=== PATIENT | male | born 1955 | race Caucasian/White ===

== ENCOUNTER → 2019-07-03 09:29 | Outpatient (CLI) | payer MEDICARE, OTHER, SELFPAY ==
--- NOTE | 2019-07-03 | DI.US.S_ITS ---
PROCEDURE: US RENAL COMPLETE INDICATIONS: NOCTURIA TECHNIQUE: Real-time scanning was performed of the kidneys and bladder, with image documentation. COMPARISON: None. FINDINGS: Kidneys: Kidneys are normal in size. Right kidney measures 10.3 cm long; left kidney measures 1.4 cm long. Right renal cortical thickness is 11.3 cm; left renal cortical thickness is 1.6 cm. Renal cortical echotexture is normal. No hydronephrosis or nephrolithiasis. No suspicious solid mass lesions. Bladder: Pre-void bladder volume is 342 mL. Post-void residual is 82 mL. Pre-void images demonstrate no intraluminal masses or stones. On pre-void images, bilateral ureteral jets are noted with color Doppler interrogation. (Of note, ureteral jets may not be detectable in up to 25% of cases due to insufficient differences in specific gravity between ureteral and bladder urine). Miscellaneous: No free pelvic fluid. IMPRESSION: No hydronephrosis or nephrolithiasis found. Normal bladder function. Source of nocturia not found. Dictated by: Truman Hong M.D. on 07/03/2019 at 14:28 Approved by: Truman Hong M.D. on 07/03/2019 at 14:29
== END ==
PROVIDERS: PCP Internal Medicine; Visit Provider Internal Medicine
DX: R35.1 Nocturia (principal)
CPT/HCPCS: 76770

== ENCOUNTER → 2020-01-15 09:10 | Outpatient (CLI) | payer MEDICARE, OTHER, SELFPAY ==
[2020-01-15 10:07] LABS: Add Manual Diff / Slide Review NO; Basophils Absolute Auto 0 /uL (0-100); Basophils Percent Auto 0.7 % (0-2); Eosinophils Absolute Auto 100 /uL (0-450); Eosinophils Percent Auto 3.1 % (2-4); Hematocrit 30.7 % (41-53); Hemoglobin 9.7 g/dL (13.5-17.5); Lymphocytes Absolute Auto 900 /uL (1100-4500); Lymphocytes Percent Auto 27.8 % (25-40); Mean Corpuscular HGB Conc 31.7 % (30-36); Mean Corpuscular Hemoglobin 27.2 PG (26-34); Mean Corpuscular Volume 85.6 fL (80-100); Monocytes Absolute Auto 300 /uL (0-900); Monocytes Percent Auto 8.7 % (3-14); Neutrophils Absolute Auto 2000 /uL (1500-7000); Neutrophils Percent Auto 59.7 % (50-75); Platelet Count 105 X10^3/uL (150-400); Red Blood Cell Count 3.59 X10^6/uL (4.5-5.9); Red Cell Distribution Width 16.7 % (11.6-14.8); White Blood Cell Count 3.3 X10^3/uL (4.5-11.0)
[2020-01-15 10:14] LABS: INR 1.1 (0.9-1.3)
[2020-01-15 11:18] LABS: Alanine Aminotransferase 32 IU/L (<50); Albumin 4.1 g/dL (3.5-5.0); Alkaline Phosphatase 153 U/L (38-126); Aspartate Aminotransferase 55 IU/L (17-59); BUN Creatinine Ratio 15.5 (6-22); Bilirubin Total 0.6 mg/dL (0.2-1.3); Blood Urea Nitrogen 11 mg/dL (9-20); Calcium 9.5 mg/dL (8.4-10.2); Carbon Dioxide 27 mmol/L (22-32); Chloride 100 mmol/L (98-107); Estimated Glomerular Filt Rate > 60.0 mL/min (>60); Glucose 186 mg/dL (80-110); HEMOLYSIS < 15 (0-50); Potassium 4.3 mmol/L (3.4-5.1); Sodium 137 mmol/L (137-145); Total Protein 8.1 g/dL (6.3-8.2)
[2020-01-15 11:51] LABS: Ferritin 17 ng/mL (18-464)
[2020-01-15 12:27] LABS: HEMOLYSIS < 15 (0-50); Iron 41 ug/dL (49-181)
[2020-01-15 12:39] LABS: Percent Iron Saturation 9 % (20-50); Total Iron Binding Capacity 482 ug/dL (261-462); Transferrin 365 mg/dL (206-381)
[2020-01-16 04:03] LABS: Hepatitis A Antibody Total Positive (Negative); Hepatitis B Surf AB Quant <3.1 mIU/mL (Immunity>9.9)
[2020-01-16 04:43] LABS: Alpha 1 Anti Trypsin 144 mg/dL (101-187); Ceruloplasmin 20.6 mg/dL (16.0-31.0); IGA 748 mg/dL (61-437); IGG 1511 mg/dL (700-1600); IGM 104 mg/dL (20-172)
[2020-01-17 03:36] LABS: Alpha Fetoprotein 5.6 ng/mL (0.0-8.3)
[2020-01-17 11:46] LABS: Anti Mitochondrial ABY IGG <20.0 Units (0.0-20.0)
[2020-01-17 13:02] LABS: Smooth Muscle Antibody 16 Units (0-19)
[2020-01-17 16:40] LABS: ANA Screen, IFA Negative (.)
== END ==
PROVIDERS: PCP Internal Medicine; Referring Provider Student in an Organized Health Care Education/Training Program; Visit Provider Student in an Organized Health Care Education/Training Program
DX: D64.9 Anemia, unspecified (principal); R74.8 Abnormal levels of other serum enzymes; K70.30 Alcoholic cirrhosis of liver without ascites
CPT/HCPCS: 36415; 80053; 82103; 82105; 82390; 82728; 82784; 83516; 83540; 83550; 85025; 85610; 86038; 86706; 86708

== ENCOUNTER → 2020-02-29 09:12 | Outpatient (CLI) | payer MEDICARE, OTHER, SELFPAY ==
--- NOTE | 2020-02-29 | DI.US.S_ITS ---
PROCEDURE: US ABDOMEN COMPLETE INDICATIONS: CIRRHOSIS TECHNIQUE: Real-time scanning was performed of the abdominal and retroperitoneal organs, with image documentation. COMPARISON: [facility], US, US RENAL COMPLETE, 07/03/2019, 9:52. FINDINGS: Liver: The liver is normal in size and demonstrates coarsened heterogeneous increased echogenicity. This does result in difficulty evaluating the liver for deep liver lesions. No large liver lesions are identified. The liver measures approximately 15.7 cm in largest dimension. The portal vein is patent. Gallbladder: The gallbladder is within normal limits without cholelithiasis or evidence of gallbladder inflammation. Biliary ducts: Intrahepatic bile ducts are non-dilated. The common bile duct was not definitely seen, obscured by overlying bowel gas. Pancreas: The pancreas was obscured by overlying bowel gas. Spleen: Spleen is normal in size and homogeneous in echotexture. Kidneys: Kidneys are normal in size and echotexture. Right kidney measures 10.1 cm long; left kidney measures 10.6 cm long. No hydronephrosis or nephrolithiasis. No solid masses. Aorta: Visualized aorta is normal in caliber at less than 3 cm. Iliacs: Proximal common iliac arteries are normal in caliber at less than 2.5 cm. IVC: Intrahepatic inferior vena cava is patent. Miscellaneous: No free abdominal fluid. IMPRESSION: 1. Heterogeneous appearance of the liver is compatible with the patient's history of hepatic cirrhosis. 2. No ascites or splenomegaly. 3. No cholelithiasis or evidence of acute cholecystitis. Dictated by: Hunter Thomason M.D. on 02/29/2020 at 10:09 Approved by: Hunter Thomason M.D. on 02/29/2020 at 10:13
== END ==
PROVIDERS: PCP Internal Medicine; Referring Provider Student in an Organized Health Care Education/Training Program; Visit Provider Student in an Organized Health Care Education/Training Program
DX: K70.30 Alcoholic cirrhosis of liver without ascites (principal); R74.8 Abnormal levels of other serum enzymes
CPT/HCPCS: 76700

== ENCOUNTER → 2020-04-02 11:01 | Outpatient (CLI) | payer MEDICARE, OTHER, SELFPAY ==
--- NOTE | 2020-04-02 | DI.CT.S_ITS ---
PROCEDURE: CT ABDOMEN WO/W CON INDICATIONS: alcoholic cirrhosis of liver without ascites TECHNIQUE: 4 phase scanning was performed. Non-contrast 5 mm axial sections acquired from the diaphragm to the iliac crests. Following the administration of intravenous contrast, 5 mm thick arterial-phase, portal venous-phase, and 5-minute delayed phase images were acquired through the liver. 5 mm thick coronal and sagittal reformats were performed. For radiation dose reduction, the following was used: automated exposure control, adjustment of mA and/or kV according to patient size. COMPARISON: [facility], , US ABDOMEN COMPLETE, 02/29/2020, 9:44. FINDINGS: Image quality: Excellent. Lung bases: Lung bases are clear. Heart size is normal. Liver: Liver demonstrates nodular contour consistent with cirrhosis. No intrahepatic masses. Portal vein is patent. Other solid organs: Gallbladder is normal. Biliary system is non dilated. Pancreas is normal in morphology. Spleen is mildly enlarged. No adrenal nodules. Both kidneys demonstrate normal size and enhancement, without hydronephrosis or nephrolithiasis. Nodes and vessels: Mild enlarged periportal lymph nodes measuring up to 1.3 cm in short axis, likely reactive. Aorta and inferior vena cava are normal in size. There is recanalized umbilical vein. Esophageal varices and gastric varices are present. The findings are consistent with portal hypertension. Bowel and peritoneum: Unenhanced bowel loops are normal in caliber. No free fluid or air. Bones: No suspicious bony lesions. No vertebral body compression fractures. Miscellaneous: No ventral hernias. IMPRESSION: 1. Nodular contour of liver consistent with cirrhosis. No intrahepatic masses to suggest HCC. 2. Findings consistent with portal hypertension including mild splenomegaly, recannulized umbilical vein, esophageal varices and gastric varices. 3. Mildly enlarged periportal lymph nodes measuring up to 1.3 cm in short axis, most likely reactive and related to cirrhosis. Dictated by: Ina Ribeiro M.D. on 04/02/2020 at 15:40 Approved by: Ina Ribeiro M.D. on 04/02/2020 at 18:09
[2020-04-02 11:38] LABS: BUN Creatinine Ratio 17.6 (6-22); Blood Urea Nitrogen 13 mg/dL (9-20); Estimated Glomerular Filt Rate > 60.0 mL/min (>60)
== END ==
PROVIDERS: PCP Internal Medicine; Referring Provider Student in an Organized Health Care Education/Training Program; Visit Provider Student in an Organized Health Care Education/Training Program
DX: K70.30 Alcoholic cirrhosis of liver without ascites (principal); I85.10 Secondary esophageal varices without bleeding; I86.4 Gastric varices; R16.1 Splenomegaly, not elsewhere classified; R59.0 Localized enlarged lymph nodes
CPT/HCPCS: 36415; 74170; 82565; 84520; Q9967

== ENCOUNTER → 2020-06-22 10:57 | Outpatient (CLI) | payer MEDICARE, OTHER, SELFPAY ==
[2020-06-23 11:21] LABS: COVID19 Sendout Not Detected (Not Detect)
== END ==
PROVIDERS: PCP Internal Medicine; Visit Provider Nurse Practitioner
DX: Z11.59 Encounter for screening for other viral diseases (principal)
CPT/HCPCS: 87635

== ENCOUNTER 2020-06-25 13:13 | Day surgery (SDC) | payer MEDICARE, OTHER, SELFPAY ==
[2020-06-25] VITALS (7 sets, daily range): BP systolic 114–166; BP diastolic 57–89; PULSE 61–71; RESP 11–24; TEMP 36.6–36.8; O2SAT 97–100; BMI 23.6
--- NOTE | 2020-06-25 | PATH_ITS ---
[facility] Accession Number: [id number] . 01 Material submitted: . rectum - RECTAL POLYP . 02 Diagnosis: Rectum, Polyp, Biopsy: Tubular adenoma. [facility] 06/26/2020 1628 Local . 02 Electronically signed: . Chandrika Milligan MD, Pathologist NPI- [id number] . 01 Gross description: . RECTAL POLYP: Received in formalin is 1 fragment(s) of de la fuente, soft tissue measuring 0.4 x 0.3 x 0.3 cm submitted entirely in 1 cassette(s) /AMALIA 06/26/2020 0123 Local . 02 Pathologist provided ICD-10: D12.8 . 02 CPT . 497737 Performed at: 01 [facility] [address] [id number] MD Jhony Hart MD Phone: [phone] Performed at: 02 [facility] [address] [place], [place] [id number] MD Chandrika Milligan MD Phone: [phone]
[2020-06-25] MEDS: SODIUM CHLORIDE 0.9% 1,000 ML 42 ML IV (14:09)
--- NOTE | 2020-06-25 16:28 | PM.HP.1 ---
History of Present Illness History of Present Illness Date Patient Seen: 06/25/20 Chief complaint: SDC Narrative: Anemia in the face of cirrhosis and known esophageal varices Patient History Family & Social History Social History: household members spouse,family Tobacco & Substance use: Tobacco type cannabis/marijuana Smoking Status Current every day smoker alcohol intake current alcohol intake frequency a few times a week Substance Use Type marijuana Meds Home Medications and Allergies Home Medications Medication Instructions Recorded Confirmed Type nadolol 20 mg PO QAY #0 11/22/11 06/25/20 History allopurinol 100 mg PO QDAY #0 05/29/13 06/25/20 History clonidine HCl 0.1 mg PO DAILY 06/25/20 06/25/20 History glipizide 2.5 mg PO BID 06/25/20 06/25/20 History lisinopril 20 mg PO DAILY 06/25/20 06/25/20 History loratadine 10 mg PO DAILY 06/25/20 06/25/20 History metformin 1,000 mg BID 06/25/20 06/25/20 History omeprazole 40 mg PO DAILY 06/25/20 06/25/20 History simvastatin 20 mg DAILY 06/25/20 06/25/20 History tamsulosin 0.4 mg PO DAILY 06/25/20 06/25/20 History Allergies Allergy/AdvReac Type Severity Reaction Status Date / Time NSAIDS (Non-Steroidal Allergy Unknown Physician Unverified 06/25/20 14:09 Anti-Inflamma said not to take codeine AdvReac Mild CONSTIPATION, Unverified 06/25/20 14:09 BUT HAS NEVER TAKEN WITH STOOL SOFTENER Exam Vital Signs (past 8 hours): - 06/25/20 14:01 Temperature 98.1 F Pulse Rate 61 Respiratory Rate 16 Blood Pressure 114/69 Pulse Oximetry 100 Oxygen Delivery Method Room Air Narrative Exam Narrative: Oropharynx free of lesions Chest clear to auscultation percussion Cardiac exam reveals no S3 or murmur Assessment & Plan Assessment & Plan narrative: Anemia and esophageal varices. Need to look for cause of anemia and to potentially band the esophageal varices further. Risks benefits alternatives have been explained.
--- NOTE | 2020-06-25 16:29 | PM.OP.ENDO ---
Operative Date/Time/Diagnoses Date of procedure: 06/25/20 Pre-op diagnosis: See indication and findings Procedure & Clinicians Study performed: EGD and colonoscopy Same procedure as scheduled: Yes Indications: Anemia and esophageal varices Surgeon: Nellie Varner Procedure Notes Procedure in detail: After informed consent was obtained the patient was placed in left lateral decubitus position. The video upper scope was placed into the oropharynx and with the patient some solid into the esophagus. The esophagus, stomach, duodenum were carefully examined. On withdrawal, retroflexed view the GE junction was performed. The scope was removed and the banding kit was placed over see see below). Then the scope was removed to turn to colonoscopy. The patient was then turned to the colonoscope substituted. This was easily passed to the cecum. Preparation was good. On slow withdrawal mucosa was carefully examined. The scope was removed. The patient tolerated procedure well. Blood loss none Complications none Sedation - MAC Findings EGD 1. Grade 2-3 esophageal varices with some areas being somewhat confluent. There were multiple red signs on some of the varices. At the end of the procedure the scope was removed and the banding kit placed. Four bands were placed on 3 columns of varices without any signs of bleeding. 2. Possible very small gastric varices in the fundus. In general the mucosa and gastric folds were quite large toe is a bit difficult to tell. 3. Gastropathy of portal hypertension which was very friable. 4. Normal duodenal bulb and sweep Colonoscopy 1. 6 mm polyp in the rectum, hot snared and removed completely 2. Scattered diverticula in the left colon 3. Other than that negative colonoscopy to cecum Patient will follow-up with tele health appointment with Dr. Willoughby. Should probably have follow-up EGD for further banding in 6-8 weeks at [facility]. Patient should only be done with anesthesia assistance.
--- NOTE | 2020-06-25 17:21 | SUR.PHASEII ---
Pt dcd in stable condition, all dc instructions given to pt and he verbalized understanding. Out to son in curbside car.
== END 2020-06-25 17:19 | disposition home or self-care (01) ==
PROVIDERS: PCP Internal Medicine; Referring Provider Internal Medicine Gastroenterology; Visit Provider Internal Medicine Gastroenterology
PROC: 0DJ08ZZ Inspection of Upper Intestinal Tract, Via Natural or Artificial Opening Endoscopic (ICD-10-PCS; CPT 43235; principal; 2020-06-25 15:30)
PROC: 0DJD8ZZ Inspection of Lower Intestinal Tract, Via Natural or Artificial Opening Endoscopic (ICD-10-PCS; CPT 45378; 2020-06-25 15:30)
DX: D64.9 Anemia, unspecified (principal); K70.30 Alcoholic cirrhosis of liver without ascites; I85.10 Secondary esophageal varices without bleeding; F10.10 Alcohol abuse, uncomplicated; K76.6 Portal hypertension; K31.89 Other diseases of stomach and duodenum; K57.30 Diverticulosis of large intestine without perforation or abscess without bleeding; D12.8 Benign neoplasm of rectum
CPT/HCPCS: 43244; 45385; J2704

== ENCOUNTER → 2020-08-24 13:47 | Outpatient (ROUT) | payer MEDICARE, OTHER, SELFPAY ==
[2020-08-25 12:36] LABS: COVID19 Sendout Not Detected (Not Detect)
== END ==
PROVIDERS: PCP Internal Medicine; Visit Provider Physician Assistant
DX: Z11.59 Encounter for screening for other viral diseases (principal)
CPT/HCPCS: 87635

== ENCOUNTER 2020-08-27 14:13 | Day surgery (SDC) | payer MEDICARE, OTHER, SELFPAY ==
[2020-08-27] VITALS (7 sets, daily range): BP systolic 107–154; BP diastolic 59–93; PULSE 56–74; RESP 12–16; TEMP 36.2–36.9; O2SAT 97–100; BMI 23.6
[2020-08-27] MEDS: SODIUM CHLORIDE 0.9% 1,000 ML 70 ML IV (15:02)
--- NOTE | 2020-08-27 15:56 | PM.HP.1 ---
History of Present Illness History of Present Illness Date Patient Seen: 08/27/20 Time Patient Seen: 15:56 Chief complaint: SDC Narrative: Patient is a pleasant 65-year-old male who presented for upper endoscopy. He does have a known history of cirrhosis secondary to abuse. He does have a history of esophageal varices. He has had active esophageal variceal bleeding in the past. He has had chronic anemia. His last EGD was June 25, 2020 for evaluation of anemia at that time, 4 additional bands were placed. He has started drinking again since that time Patient History Family & Social History Social History: household members spouse,family Tobacco & Substance use: Tobacco type cannabis/marijuana Smoking Status Former smoker alcohol intake current alcohol intake frequency a few times a week Substance Use Type marijuana Meds Home Medications and Allergies Home Medications Medication Instructions Recorded Confirmed Type nadolol 20 mg PO QAY #0 11/22/11 08/27/20 History allopurinol 100 mg PO QDAY #0 05/29/13 08/27/20 History clonidine HCl 0.1 mg PO DAILY 06/25/20 08/27/20 History glipizide 2.5 mg PO BID 06/25/20 08/27/20 History lisinopril 20 mg PO DAILY 06/25/20 08/27/20 History loratadine 10 mg PO DAILY 06/25/20 08/27/20 History metformin 1,000 mg BID 06/25/20 08/27/20 History omeprazole 40 mg PO DAILY 06/25/20 08/27/20 History simvastatin 20 mg DAILY 06/25/20 08/27/20 History tamsulosin 0.4 mg PO DAILY 06/25/20 08/27/20 History Allergies Allergy/AdvReac Type Severity Reaction Status Date / Time NSAIDS (Non-Steroidal Allergy Unknown Physician Verified 08/27/20 15:21 Anti-Inflamma said not to take codeine AdvReac Mild CONSTIPATION, Verified 08/27/20 15:21 BUT HAS NEVER TAKEN WITH STOOL SOFTENER Review of Systems Review of Systems Narrative: No signs or symptoms GI bleeding. No melena. No abdominal pain. ROS: Yes All systems reviewed with the patient and are negative except as otherwise documented Exam Vital Signs (past 8 hours): - 08/27/20 14:41 08/27/20 14:49 Temperature 97.2 F L 97.2 F L Pulse Rate 56 L 56 L Respiratory Rate 16 16 Blood Pressure 107/59 L 107/59 L Pulse Oximetry 100 100 Oxygen Delivery Method Room Air Const General: cooperative, comfortable and well developed Nutritional Appearance: average body habitus HENMT Head: normocephalic and atraumatic Resp Effort & Inspection: normal respiratory effort and able to speak in complete sentences Auscultation: clear to auscultation bilaterally Cardio Rate: regular rate Rhythm: regular rhythm Heart Sounds: S1 normal and S2 normal GI Palpation: soft and No tender Extrem Right lower extremity: no edema Left lower extremity: no edema Assessment & Plan Assessment & Plan narrative: 1. History of esophageal varices overdue for repeat EGD to assess for healing 2. Cirrhosis secondary to alcohol abuse EGD today, further recommendations to follow
--- NOTE | 2020-08-27 16:16 | PM.OP.ENDO ---
Operative Date/Time/Diagnoses Date of procedure: 08/27/20 Time of procedure: 16:03 Procedure Notes Procedure in detail: Surgeon: Alicia Willoughby DO Procedure: Esophagogastroduodenoscopy with variceal band ligation x3 Preoperative diagnosis: 1. Cirrhosis with history of esophageal varices 2. Chronic anemia Postoperative diagnosis: 1. Large esophageal varices with 3 bands placed 2. Portal hypertensive gastropathy 3. Small hiatal hernia Medications: Monitored anesthesia care Preanesthesia Assessment An H and P was performed/updated and the Px?s ASA class is 3. The procedure was discussed in detail with the patient. The potential risks and complications including infection, bleeding, missed lesions, perforation, need for surgery in case of perforation, prolonged hospital stay, and were explained. A brief question and answer period was allotted and once all questions were answered, informed consent was obtained. The patient was brought back to the procedure room and placed on standard monitoring. The patient?s vital signs were monitored continuously throughout the entire procedure. Prior to starting, a timeout was performed to confirm the patient?s identity, allergies, medications, and procedure. Procedure in detail The patient was placed in left lateral decubitus position and a bite block was inserted. The tip of the upper endoscope was placed into the mouth and advanced without difficulty under direct visualization into the esophagus. Esophagus: -Large esophageal varices seen in the distal esophagus, 3 band ligations were placed Stomach: -Small hiatal hernia -Portal hypertensive gastropathy Duodenum: -No gross lesions noted in examined duodenum The patient tolerated the procedure well and will be brought back to the recovery area to be discharged once criteria are met. The total physician intraservice time was 12min Complications There were no complications and estimated blood loss was minimal. Recommendations: Soft diet for the next 48 hours Discontinue alcohol Continue outPx medications Repeat EGD in 6 weeks with anesthesia Office follow up after repeat procedure An emergency contact number was given to the patient for any complications related to the procedure
--- NOTE | 2020-08-27 16:18 | SUR.OPER ---
Dr. Cat present and administrated all anesthesia and sedation
--- NOTE | 2020-08-27 16:58 | SUR.PHASEII ---
Son called. d/c instructions discussed, both voiced an understanding. Green envelop given to son on discharge. Pt left in stable condition.
== END 2020-08-27 16:59 | disposition home or self-care (01) ==
PROVIDERS: PCP Internal Medicine; Referring Provider Internal Medicine; Visit Provider Student in an Organized Health Care Education/Training Program
PROC: 0DJ08ZZ Inspection of Upper Intestinal Tract, Via Natural or Artificial Opening Endoscopic (ICD-10-PCS; CPT 43235; principal; 2020-08-27 16:00)
DX: I85.00 Esophageal varices without bleeding (principal); D64.9 Anemia, unspecified; K44.9 Diaphragmatic hernia without obstruction or gangrene; K31.9 Disease of stomach and duodenum, unspecified
CPT/HCPCS: 43244; J2704

== ENCOUNTER → 2020-11-17 09:11 | Outpatient (CLI) | payer MEDICARE, OTHER, SELFPAY ==
[2020-11-17 10:07] LABS: COVID19 -Nasal RAPID Negative (Negative)
== END ==
PROVIDERS: PCP Internal Medicine; Visit Provider Physician Assistant
DX: Z20.822 Contact with and (suspected) exposure to COVID-19 (principal)
CPT/HCPCS: 87635; C9803

== ENCOUNTER 2020-11-19 13:46 | Day surgery (SDC) | payer MEDICARE, OTHER, SELFPAY ==
[2020-11-19] VITALS (7 sets, daily range): BP systolic 99–141; BP diastolic 59–81; PULSE 59–66; RESP 12–16; TEMP 36.7–36.8; O2SAT 98–100; BMI 22.8
[2020-11-19] MEDS: SODIUM CHLORIDE 0.9% 1,000 ML 70 ML IV (14:22)
--- NOTE | 2020-11-19 14:44 | PM.HP.1 ---
History of Present Illness History of Present Illness Date Patient Seen: 11/19/20 Time Patient Seen: 14:40 Chief complaint: SDC Narrative: Patient is a 65-year-old male who presented for EGD with possible banding. He does have a known history of cirrhosis secondary to chronic alcohol abuse. He was last seen for upper endoscopy on August 27, 2020 he did have 3 bands placed at that time. He also noted portal hypertensive gastropathy and a small hiatal hernia. Patient History Family & Social History Social History: household members spouse,family Tobacco & Substance use: Tobacco type cannabis/marijuana Smoking Status Former smoker alcohol intake current alcohol intake frequency a few times a week Substance Use Type marijuana Meds Home Medications and Allergies Home Medications Medication Instructions Recorded Confirmed Type nadolol 20 mg PO QAY #0 11/22/11 08/27/20 History allopurinol 100 mg PO QDAY #0 05/29/13 08/27/20 History clonidine HCl 0.1 mg PO DAILY 06/25/20 08/27/20 History glipizide 2.5 mg PO BID 06/25/20 08/27/20 History lisinopril 20 mg PO DAILY 06/25/20 08/27/20 History loratadine 10 mg PO DAILY 06/25/20 08/27/20 History metformin 1,000 mg BID 06/25/20 08/27/20 History omeprazole 40 mg PO DAILY 06/25/20 08/27/20 History simvastatin 20 mg DAILY 06/25/20 08/27/20 History tamsulosin 0.4 mg PO DAILY 06/25/20 08/27/20 History Allergies Allergy/AdvReac Type Severity Reaction Status Date / Time NSAIDS (Non-Steroidal Allergy Unknown Physician Verified 08/27/20 15:21 Anti-Inflamma said not to take codeine AdvReac Mild CONSTIPATION, Verified 08/27/20 15:21 BUT HAS NEVER TAKEN WITH STOOL SOFTENER Review of Systems Review of Systems ROS: Yes All systems reviewed with the patient and are negative except as otherwise documented Exam Vital Signs (past 8 hours): - 11/19/20 14:15 Temperature 98.1 F Pulse Rate 60 Respiratory Rate 13 Blood Pressure 141/72 H Pulse Oximetry 100 Oxygen Delivery Method Room Air Oxygen Flow Rate 0 Const General: cooperative, healthy appearing, comfortable and well developed Nutritional Appearance: average body habitus HENMT Head: normocephalic Resp Effort & Inspection: normal respiratory effort and able to speak in complete sentences Auscultation: clear to auscultation bilaterally Cardio Rate: regular rate Rhythm: regular rhythm Heart Sounds: S1 normal and S2 normal GI Palpation: soft Auscultation: normal bowel sounds Extrem Right lower extremity: no edema Left lower extremity: no edema Assessment & Plan Assessment & Plan narrative: 1. Cirrhosis with a history of esophageal varices, last banded August 27, 2020 EGD today, further recommendations to follow
--- NOTE | 2020-11-19 14:57 | PM.OP.ENDO ---
Operative Date/Time/Diagnoses Date of procedure: 11/19/20 Time of procedure: 14:54 Procedure Notes Procedure in detail: Surgeon: Alicia Willoughby DO Procedure: Esophagogastroduodenoscopy Preoperative diagnosis: 1. History of cirrhosis 2. History of esophageal varices, portal hypertensive gastropathy, small hiatal hernia Postoperative diagnosis: 1. Esophageal varices, extending into the stomach consistent with GOV2 gastric varices 2. Portal hypertensive gastropathy 3. Small hiatal hernia Medications: Monitored anesthesia care Preanesthesia Assessment An H and P was performed/updated and the Px?s ASA class is 3. The procedure was discussed in detail with the patient. The potential risks and complications including infection, bleeding, missed lesions, perforation, need for surgery in case of perforation, prolonged hospital stay, and were explained. A brief question and answer period was allotted and once all questions were answered, informed consent was obtained. The patient was brought back to the procedure room and placed on standard monitoring. The patient?s vital signs were monitored continuously throughout the entire procedure. Prior to starting, a timeout was performed to confirm the patient?s identity, allergies, medications, and procedure. Procedure in detail The patient was placed in left lateral decubitus position and a bite block was inserted. The tip of the upper endoscope was placed into the mouth and advanced without difficulty under direct visualization into the esophagus. Esophagus: Grade 1-2 esophageal varices with scarring from prior banding noted, extending into the stomach Stomach: GOV2 gastric varices Portal hypertensive gastropathy Small hiatal hernia Duodenum: Normal-appearing duodenum The patient tolerated the procedure well and will be brought back to the recovery area to be discharged once criteria are met. The total physician intraservice time was 6min. Complications There were no complications and estimated blood loss was minimal. Recommendations: Resume previous diet Continue outPx medications Repeat EGD in 1 year Office follow up to be scheduled An emergency contact number was given to the patient for any complications related to the procedure
--- NOTE | 2020-11-19 16:14 | SUR.PHASEII ---
Pt met discharge criteria: VSS, denied pain or nausea, able to drink fluids without difficulty. Discharge instructions discussed with pt, all questions answered. Transported via W/C to private vehicle.
== END 2020-11-19 15:57 | disposition home or self-care (01) ==
PROVIDERS: PCP Internal Medicine; Referring Provider Student in an Organized Health Care Education/Training Program; Visit Provider Student in an Organized Health Care Education/Training Program
PROC: 0DJ08ZZ Inspection of Upper Intestinal Tract, Via Natural or Artificial Opening Endoscopic (ICD-10-PCS; CPT 43235; principal; 2020-11-19 15:00)
DX: I85.00 Esophageal varices without bleeding (principal); K44.9 Diaphragmatic hernia without obstruction or gangrene; K76.6 Portal hypertension; K31.89 Other diseases of stomach and duodenum; F10.11 Alcohol abuse, in remission; I10 Essential (primary) hypertension; E11.9 Type 2 diabetes mellitus without complications; Z79.84 Long term (current) use of oral hypoglycemic drugs
CPT/HCPCS: 43235

== ENCOUNTER → 2020-12-22 14:04 | Outpatient (CLI) | payer MEDICARE, OTHER, SELFPAY | PROVIDERS: PCP Internal Medicine; Referring Provider Podiatrist; Visit Provider Podiatrist | DX: Z01.818 Encounter for other preprocedural examination (principal) | CPT/HCPCS: 93005 ==

== ENCOUNTER → 2020-12-24 09:46 | Outpatient (CLI) | payer MEDICARE, OTHER, SELFPAY ==
[2020-12-24 11:17] LABS: COVID19 -Nasal RAPID Negative (Negative)
== END ==
PROVIDERS: PCP Internal Medicine; Visit Provider Nurse Practitioner Family
DX: Z01.812 Encounter for preprocedural laboratory examination (principal); Z20.822 Contact with and (suspected) exposure to COVID-19
CPT/HCPCS: 87635; C9803

== ENCOUNTER 2020-12-26 07:51 | Day surgery (SDC) | payer MEDICARE, OTHER, SELFPAY ==
[2020-12-26] VITALS (15 sets, daily range): BP systolic 97–138; BP diastolic 48–84; PULSE 20–71; RESP 11–20; TEMP 35.9–37.1; O2SAT 93–99; BMI 22.8
[2020-12-26] MEDS: LACTATED RINGERS 1,000 ML 100 ML IV ×2 (08:36→09:48)
--- NOTE | 2020-12-26 08:46 | PM.PREOP ---
Pre-operative Note COVID-19 COVID-19 status: Negative Interval Note History & Physical reviewed/Exam performed by Physician: Yes Changes to H&P: No
[2020-12-26] MEDS: CEFAZOLIN 2 GM/100 ML FROZ.PIGGY IV (08:55)
--- NOTE | 2020-12-26 09:26 | SUR.OPER ---
Supine on padded OR bed, head on pillow, arms secured on padded arm boards at <90 degrees abduction, legs uncrossed, safety belt at thigh, tape over blanket over lower right leg, gel bump under left thigh, left leg draped free.
[2020-12-26] MEDS: BUPIVACAINE 0.5% (PF) VIAL 30 ML INJ (09:33)
[2020-12-26] MEDS: LIDOCAINE 2% INJ SDV 5 ML INJ (09:34)
--- NOTE | 2020-12-26 09:59 | PM.OP.1 ---
Operative Date/Time/Diagnoses Date of procedure: 12/26/20 Time of procedure: 09:59 Pre-op diagnosis: Left second painful hammertoe Post-op diagnosis: same Procedure & Clinicians Procedure: Left second toe amputation Same procedure as scheduled: Yes Indications: Painful hammertoe. Conservative measures failed to alleviate his pain and he wished to have surgical intervention at this time. Surgeon: Nataliia Johnson Click Yes if Unassisted: Yes Anesthesia Type: General Operative Notes Closure Type: primary Specimen(s): none sent Estimated Blood Loss (mL): 5 Blood products transfused: none Tourniquet time (min): 8 Procedure in detail: The patient was brought to the operating room and placed on the operating table in the supine position. Tourniquet was placed about the high calf. Well padded appropriately aligned. After induction of general anesthesia the left foot and ankle were prepped and draped in the usual aseptic manner. The tourniquet was inflated. After check of anesthesia a full-thickness circumferential incision was made around the left 2nd toe. This was then continued into the metatarsophalangeal joint linearly. The toe was carefully disarticulated. The area was irrigated with copious amounts of normal sterile saline. All bleeders were cauterized and ligated as necessary. No necrotic tissue or abscesses were noted. Skin and tissue was revised to allow for appropriate closure. 4-0 Vicryl was used subcutaneously for closure and 4-0 nylon for the skin. The area was dressed with a sterile lightly compressive dressing. Complications: none Post-operative Condition: stable Disposition: observation Plan for aftercare: Following a period of postoperative monitoring the patient will be transferred to the hospital floor for overnight observation due to pain management and verification of return to ADLs and verification of hemostasis of surgical site.
[2020-12-26] MEDS: diphenhydrAMINE 50 MG/ML VIAL (10:33)
--- NOTE | 2020-12-26 10:39 | SUR.PHASEI ---
report to ANTHONY Schwarz assuming care of pt. Transfer to room 205
[2020-12-26] MEDS: OXYCODONE IR 5 MG TABLET PO ×3 (14:55→23:21)
--- NOTE | 2020-12-26 15:21 | PC.NURSE ---
Patient on floor 10:50. VSS. A&O X3. Pain 4/10 this afternoon, given 5 mg Oxycodone. Left foot with Acewrap and foot brace, CDI. Saline locked. Call light within reach. No BM or gas yet, but voiding into urinal. 50% weight bearing on left foot.
[2020-12-26] MEDS: PANTOPRAZOLE 40 MG TABLET PO (17:26)
[2020-12-26] MEDS: METFORMIN HCL 500 MG TABLET 1000 MG PO (20:17)
[2020-12-27 03:10] VITALS: BP 115/66; PULSE 72; RESP 18; TEMP 36.3; O2SAT 95
[2020-12-27] MEDS: OXYCODONE IR 5 MG TABLET PO ×2 (03:22→08:17)
[2020-12-27 07:30] VITALS: BP 143/68; PULSE 70; RESP 17; TEMP 36.6; O2SAT 97
[2020-12-27] MEDS: allopurinoL 300 MG TABLET PO (08:42)
[2020-12-27 08:43] VITALS: BP 143/68; PULSE 70
[2020-12-27] MEDS: lisinopriL 20 MG TABLET PO (08:43)
[2020-12-27] MEDS: LORATADINE 10 MG TABLET PO (08:44)
[2020-12-27] MEDS: SIMVASTATIN 20 MG TABLET PO (08:44)
[2020-12-27] MEDS: MULTIVITAMIN 1 TABLET 1 TAB PO (08:44)
[2020-12-27] MEDS: METFORMIN HCL 500 MG TABLET 1000 MG PO (08:44)
[2020-12-27] MEDS: TAMSULOSIN 0.4 MG CAPSULE PO (08:45)
[2020-12-27] MEDS: SODIUM CHLORIDE 0.9% FLUSH 10 ML IV (08:45)
[2020-12-27] MEDS: THIAMINE 100 MG TABLET 250 MG PO (08:45)
--- NOTE | 2020-12-27 09:48 | PT.IIE ---
Current Diagnoses Hallux valgus (acquired), left foot (12/26/20) Other hammer toe(s) (acquired), left foot (12/26/20) Pain in left foot (12/26/20) Surgery Performed Operation Date: 12/26/20 09:15 Actual Procedures p 2nd Toe Amputation(Left) - Nataliia Johnson DPM Surgical History (Last Updated 12/17/20 @ 09:16 by Ashlyn Mckeon, RN) History of cataract extraction with lens replacement History of colonoscopy History of esophagogastroduodenoscopy (EGD) (~08/27/20) History of total hip arthroplasty Medical History (Last Updated 12/17/20 @ 11:25 by Ashlyn Mckeon, ANTHONY) Anemia Chronic alcohol abuse Diabetes Diverticulosis DVT (deep venous thrombosis) Esophageal 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 Foot pain, left Gastritis Gout Hallux valgus with bunions of left foot Hammertoe of second toe of left foot Hepatic cirrhosis Heterozygous factor V Leiden mutation Hiatal hernia Portal hypertensive gastropathy Ringing in ears Tubular adenoma Unspecified essential hypertension Physical Therapy Inpatient Evaluation/Re-Eval M1 PT/OT-IP Prior Functional Status Start: 12/27/20 10:38 Freq: NEEDED Status: Active Protocol: Document 12/27/20 09:48 AB (Rec: 12/27/20 10:50 AB [id number]) Medical Review Prior Functional Status Medical History Reviewed Yes Communication able to make needs known Mobility and Gait pt stated that he is independent with all mobilities and ambulation without AD; stated that he uses his power w/c for outdoor mobility Social History Household Members spouse,family Living Arrangements House Number of Floors (Floors) One Floor Number of Stairs To Enter/Railing? no steps; ramp to enter Home Environment High Toilet,Walk in Shower, Built-In Shower Seat,Ramp Home Equipment Crutches,Power Wheelchair/ Scooter,Grab Bars In Shower Additional Social History Comment pt stated that his spouse is disabled and is on a w/c but grandson and other family members will be able to assist him pt stated that he has used crutches extensively before and prefers crutches to use M2 PT-IP Current Condition Start: 12/27/20 10:38 Freq: NEEDED Status: Active Protocol: Document 12/27/20 09:48 AB (Rec: 12/27/20 10:50 AB [id number]) Physical Therapy Current Condition Current Condition Evaluation Date 12/27/20 Treatment Diagnosis s/p L 2nd hammertoe amputation ; difficulty in walking Onset Date 12/26/20 Weight Bearing Status Weight Bearing Status Partial Weight Bearing Allowed Weight Bearing Amount (enter % LLE PWB <50% or #) (%) M3 PT-IP Subjective Start: 12/27/20 10:38 Freq: NEEDED Status: Active Protocol: Document 12/27/20 09:48 AB (Rec: 12/27/20 10:50 AB [id number]) Subjective Physical Therapy Visit Type Type Initial Evaluation Visit Start Time 09:48 Visit Stop Time 10:10 Total Visit Minutes 22 Number of SUPERVISOR PLATE PASTING Visits 0 Physical Therapy Visit Comments Patient Comments agreeable to do PT Therapy Pain Assessment Pain When Pain Assessed At Rest Pain Present Pain Present Pain Reported Location Left Toe Intensity 2 Scale Used Numeric (0 - 10) M4 PT-IP Mobility and Gait Start: 12/27/20 10:38 Freq: NEEDED Status: Active Protocol: Document 12/27/20 09:48 AB (Rec: 12/27/20 10:50 AB [id number]) PT-Bed Mobility Assessment Supine to Sit Supine to Sit Standby Assistance Sit to Supine Sit to Supine Standby Assistance Scooting Scooting to Edge of Bed Standby Assistance Scooting Up and Down in Bed Standby Assistance PT-Transfer Assessment Sit to and From Stand Sit to and from Stand Standby Assistance Equipment Transfer Assistive Device Gait Belt,Axillary Crutches Orthotic/Prosthetic Devices or Brace: No Comments Mobility Comments educated pt on weight bearing restriction and instructed on how to maintain. BP supine: 133/72. pt completed bed mobility supine to sit SBA. completed sit to stand SBA and ambulated in room using bilateral axillary crutches ~ 30 ft SBa and cues to maintain PWB on LLE. pt c/o dizziness and instructed to sit back on bed. pt requested to lay back in bed and completed sBA. positioned in bed. stated dizziness is gone. BP checked : 139/79. pt stated that he uses a power w/c for outdoor mobility and does not have go walk much inside the house. call light and table placed within reach. informed nurse regarding pt's mobility. Gait Assessment Gait Gait Assistance Required: Standby Assistance,1 Person Assist Distance (Feet) 30 Able to Maintain Weight Bearing Status Yes During Gait Assistive Devices Assistive Device Gait Belt,Axillary Crutches Orthotic/Prosthetic Devices or Brace: No Gait Deviations General Gait Pattern Decreased Feet Clearance Factors Limiting Gait Function Factors Limiting Gait Function Decreased Activity Tolerance, Decreased Strength,Pain,Poor Balance,Poor Safety Awareness PT-Balance Assessment Sitting Balance and Reactions Static Sitting Balance Ability Good Dynamic Sitting Balance Ability Good Standing Balance and Reactions Static Standing Balance Ability Fair Dynamic Standing Balance Ability Fair Device Used crutches M5 PT-IP Objective Assessments Start: 12/27/20 10:38 Freq: NEEDED Status: Active Protocol: Document 12/27/20 09:48 AB (Rec: 12/27/20 10:50 AB [id number]) Orientation Orientation/Cognition Level of Alertness Alert Orientation Name,Age,Birthday,Month,Date, Year,Day of Week,Place, Situation Language Function Ability No Deficits Noted Safety Awareness Understands Safety Issues Memory Description No Deficits Noted Gross Range of Motion Lower Extremity ROM Assessment Left Impaired Impairments L hip limited: pt stated that he had previous OCTAVIO Strength Lower Extremity Strength Hip 4-/5 Knee 4-/5 Muscle Tone Muscle Tone WNL Yes M6 PT-IP Treatment Start: 12/27/20 10:38 Freq: NEEDED Status: Active Protocol: Document 12/27/20 09:48 AB (Rec: 12/27/20 10:50 AB [id number]) Physical Therapy Treatment Education Education Provided Weight Bearing Status,Safety M7 PT-IP Assessment and Plan Start: 12/27/20 10:38 Freq: NEEDED Status: Active Protocol: Document 12/27/20 09:48 AB (Rec: 12/27/20 10:50 AB [email or web address]) PT Summary Assessment and Plan Potential Rehabilitation Potential Good Status of Condition at Evaluation Stable Summary Impairments Pain,ROM,Strength,Balance, Coordination,Sensation,Bed Mobility,Transfers,Gait, Activity Tolerance Assessment Summary pt requiring SBA with mobility but limited due to decrease activity tolerance with c/o dizziness during ambulation but BP is stable. pt stated that he has a power w/c for outdoor mobility and does not have to walk much at home. pt will have family to assist him. pt may go home when medically stable. Goals Bed Mobility Goal Independent Transfer Goal Independent,Crutches Gait Goal Independent,Crutches Gait Distance 100 Days to Meet Goals 5 Frequency of Treatment Frequency Of Treatment Once a Day Treatment Plan Physical Therapy Treatment Plan Bed Mobility Training,Transfer Training,Gait Training, Therapeutic Exercise,Balance Retraining,Post Op Education, Discharge Planning,Hot or Cold Pack,Neuromuscular Re-ed, Coordination Retraining Recommendations To Nursing Amount of Assist Needed Standby Assistance Discharge Recommendations PT Discharge Recommendations Home with Assistance Transportation Needs at Discharge Private Vehicle
[2020-12-27 10:30] VITALS: BP 139/78; PULSE 75; RESP 15; TEMP 36.4; O2SAT 97
--- NOTE | 2020-12-27 10:47 | CM.DANOTE ---
DCP: Case received, EMR reviewed and met with patient. Introduced self and role. Was able to obtain information from patient regarding his baseline activity status prior to surgery, as well as current living situation. DCP assessment completed with information currently available. Patient is a 65 year old male who admitted yesterday morning to the care of the surgical/podiatry team. PCP: Dr. Eli. Payer: confirmed: Medicare/[employer]. Patient came to the hospital for a surgical procedure. He had a left second toe amputation secondary to having hammertoe. Met with patient in his room. He is alert and oriented. He has a boot on his left foot. Plan is for home today. He stated that prior to surgery, he used no DME supplies, would limp to get around. Confirmed that he resides in [place] with his , Love. His son is bringing him some crutches, as well as a wheel-chair. Patient indicated that his daughter, Sara, will be assisting him at home, as well as his grand son. Stated, he has plenty of family support. He has already worked with [facility]: Patient is to be discharged home today, with family assistance at home. Nichole Kumar RN/Warranty Coordinator
--- NOTE | 2020-12-27 11:29 | PC.NURSE ---
Patient educated about ss/ of infection, discharge post op information, follow up w/ provider, ss of stroke, activity, weight bearing and medications. Patient verbalized understanding of all discharge teaching. Patient left facility with all belongings, via wheelchair to private vehicle with family member. Patient had no prescriptions.
== END 2020-12-27 11:29 | disposition home or self-care (01) ==
LOC: OR 07:54 → AC 07:54
PROVIDERS: PCP Internal Medicine; Referring Provider Podiatrist; Visit Provider Podiatrist
PROC: (CPT 28820; principal; 2020-12-26 09:15)
DX: M20.42 Other hammer toe(s) (acquired), left foot (principal); M20.12 Hallux valgus (acquired), left foot; M79.672 Pain in left foot; I10 Essential (primary) hypertension; E11.9 Type 2 diabetes mellitus without complications; Z79.84 Long term (current) use of oral hypoglycemic drugs; K21.9 Gastro-esophageal reflux disease without esophagitis
CPT/HCPCS: 28820; 97161; J0690; J1200; J2405; J2704; J3010

== ENCOUNTER 2021-06-05 08:23 | Emergency (ER) | payer MEDICARE, OTHER, SELFPAY ==
[2020-12-26 08:04] VITALS: BMI 22.8
[2021-06-05] VITALS (28 sets, daily range): BP systolic 79–130; BP diastolic 50–87; PULSE 59–75; RESP 14–23; TEMP 36.2–36.6; O2SAT 97–99; BMI 22.1
--- NOTE | 2021-06-05 08:27 | ED_ITS ---
HPI - Nausea/Vomiting/Diarrhea General Chief complaint: GI Bleed Stated complaint: esophageal varices, vomiting blood Time Seen by Provider: 06/05/21 08:30 History of Present Illness HPI Narrative: 65-year-old male former smoker with history of cirrhosis, known esophageal varices presents by EMS for evaluation of a large amount of bright red blood in his vomit. He was in his normal state of health when he went to bed and woke up under the circumstances. He feels dizzy, weak and lightheaded. EMS had pressures in the 80s, he was given about 800 mL of normal saline in route. He denies any changes medications or diet. He was last seen by GI at our facility as an outpatient in October with prior banding in July. He does not take any blood thinners. He denies any change in bowel habits. Related Data Home Medications Medication Instructions Recorded Confirmed nadolol 20 mg tablet 20 mg PO QPM #0 11/22/11 06/05/21 allopurinol 100 mg tablet 300 mg PO QDAY #0 05/29/13 06/05/21 glipizide 2.5 mg tablet, extended 2.5 mg PO BID 06/25/20 06/05/21 release 24 hr lisinopril 20 mg tablet 20 mg PO DAILY 06/25/20 06/05/21 loratadine 10 mg tablet 10 mg PO DAILY 06/25/20 06/05/21 metformin 1,000 mg tablet 1,000 mg BID 06/25/20 06/05/21 omeprazole 40 mg capsule,delayed 40 mg PO QPM 06/25/20 06/05/21 release simvastatin 20 mg tablet 20 mg PO DAILY 06/25/20 06/05/21 tamsulosin 0.4 mg capsule 0.4 mg PO DAILY 06/25/20 06/05/21 milk thistle 500 mg capsule 1,000 mg PO DAILY 12/16/20 06/05/21 multivitamin 1 tab PO DAILY 12/16/20 06/05/21 thiamine HCl (vitamin B1) 250 mg 250 mg PO DAILY 12/16/20 06/05/21 tablet (Vitamin B-1) Allergies Allergy/AdvReac Type Severity Reaction Status Date / Time hydrocodone Allergy Mild Itch Verified 12/17/20 09:03 NSAIDS (Non-Steroidal Allergy Unknown Physician Verified 12/17/20 09:03 Anti-Inflamma said not to take codeine AdvReac Mild CONSTIPATION, Verified 08/27/20 15:21 BUT HAS NEVER TAKEN WITH STOOL SOFTENER Review of Systems Review of Systems Narrative: GENERAL: See HPI HEENT: Denies sinus pain, ear pain, sore throat, difficulty swallowing, dizziness. RESPIRATORY: Denies dyspnea, cough, wheezing, hemoptysis, sputum. CARDIOVASCULAR: Denies chest pain, palpitations, orthopnea, edema, GASTROINTESTINAL: See HPI : Denies dysuria, frequency, incontinence, hematuria, urinary retention. MUSCULOSKELETAL: denies weakness, joint pain, or bony pain SKIN: Denies rash, skin lesions, or other NEUROLOGIC: Denies weakness, headache, numbness, change in speech, confusion, seizures, incoordination. PSYCHIATRIC: No concerning psychosocial issues. 12 point review of systems is negative except for those stated above Patient History Medical History Anemia Chronic alcohol abuse Diabetes Diverticulosis DVT (deep venous thrombosis) Esophageal 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 Foot pain, left Gastritis Gout Hallux valgus with bunions of left foot Hammertoe of second toe of left foot Hepatic cirrhosis Heterozygous factor V Leiden mutation Hiatal hernia Portal hypertensive gastropathy Ringing in ears Tubular adenoma Unspecified essential hypertension Surgical History History of cataract extraction with lens replacement History of colonoscopy History of esophagogastroduodenoscopy (EGD) (~08/27/20) History of total hip arthroplasty Social History household members: spouse and family Smoking Status: Former smoker alcohol intake: current Smoking Status: Former smoker alcohol intake frequency: a few times a week Substance Use Type: marijuana Exam Narrative Exam Narrative: GENERAL: [65] year old patient appears stated age. Well- developed patient, in mild distress. Pale, diaphoretic HEAD: Atraumatic. Normocephalic. EYES: Pupils equal round and reactive. Extraocular motions intact. No scleral icterus. No injection or drainage. ENT: Nose without bleeding, purulent drainage. Throat without erythema, tonsillar hypertrophy or exudate. Airway patent. NECK: Trachea midline. Non tender CARDIOVASCULAR: Regular rate and rhythm without murmurs, gallops, or rubs. RESPIRATORY: Clear to auscultation. Breath sounds equal bilaterally. No wheezes, rales, or rhonchi. GASTROINTESTINAL: Abdomen soft, non-tender, nondistended. EXTREMITIES: No edema or joint tenderness. BACK: Nontender without deformity or crepitance. No flank tenderness. NEURO: AOx3. SKIN: No rash or erythema of visible areas Initial Vital Signs Initial Vital Signs: Vital Signs Temperature 97.6 F 06/05/21 08:27 Pulse Rate 66 06/05/21 08:27 Respiratory Rate 18 06/05/21 08:27 Blood Pressure 125/87 06/05/21 08:27 Pulse Oximetry 97 06/05/21 08:27 Course Orders Ordered: Discontinued Medications Octreotide Acetate 500 mcg/ (Sodium Chloride) 101 mls @ 5.05 mls/hr IV CONT ROLO Last Infusion: 06/05/21 12:10 Dose: 0 mcg/hr, 0 mls/hr Documented by: Admin: 06/05/21 08:52 Dose: 25 mcg/hr, 5.05 mls/hr Documented by: PASQUALE Ceftriaxone Sodium 1,000 mg/ (Sodium Chloride) 100 mls @ 200 mls/hr IV NOW ONE Stop: 06/05/21 10:06 Last Infusion: 06/05/21 10:54 Dose: 0 mls/hr Documented by: Admin: 06/05/21 10:15 Dose: 200 mls/hr Documented by: PASQUALE Metoclopramide HCl (Metoclopramide 10 Mg/2 Ml Inj) 10 mg IV NOW ONE Stop: 06/05/21 09:02 Last Admin: 06/05/21 09:17 Dose: 10 mg Documented by: PASQUALE Octreotide Acetate (Octreotide 100 Mcg/Ml Vial) 50 mcg IV NOW ONE Stop: 06/05/21 08:29 Last Admin: 06/05/21 08:54 Dose: 50 mcg Documented by: PASQUALE Ondansetron HCl (Ondansetron 4 Mg/2 Ml Inj) 4 mg IV NOW ONE Stop: 06/05/21 08:29 Last Admin: 06/05/21 08:54 Dose: 4 mg Documented by: PASQUALE Pantoprazole Sodium (Pantoprazole 40 Mg Vial) 40 mg IV NOW ONE Stop: 06/05/21 08:29 Last Admin: 06/05/21 08:54 Dose: 40 mg Documented by: PASQUALE Pantoprazole Sodium (Pantoprazole 40 Mg Vial) 40 mg IV NOW ONE Stop: 06/05/21 10:06 Last Admin: 06/05/21 10:16 Dose: 40 mg Documented by: PASQUALE Consultations Consultation #1: [id number] - discussion with personal lines sales executive surgery (Jaxon) she and her partner do not do banding, needs transfer 0840 - left message with [facility] 0845 - Prov is boarding 40+ [phone] - [facility] called. No beds 0945 - [facility] sounds like they have beds 1030 - Dr. Navarro at [facility] happy to accept. Requests addition Protonix 40 (total 80) and Rocephin 1g IVPB. Will put patient in ICU. Ambulance to arrive at 1200. Patient is aware of and in agreement with the plan. Vitals remain stable (128/58 and rate 63) Vital Signs Vital signs: Vital Signs - 8 hr 06/05/21 10:49 06/05/21 11:00 06/05/21 11:06 Temperature 97.9 F 97.7 F Pulse Rate 61 64 60 Respiratory Rate 14 21 18 Blood Pressure 105/60 120/58 L 100/57 L Pulse Oximetry 98 06/05/21 11:08 06/05/21 11:15 06/05/21 11:30 Temperature 97.5 F L Pulse Rate 62 63 63 Respiratory Rate 18 18 Blood Pressure 120/58 L 119/59 L 110/57 L Pulse Oximetry 98 99 06/05/21 11:45 06/05/21 12:00 06/05/21 12:05 Temperature 97.7 F 97.7 F Pulse Rate 59 L 64 60 Respiratory Rate 14 18 Blood Pressure 101/56 L 100/57 L 100/57 L Pulse Oximetry 99 99 MDM - Nausea/Vomiting/Diarrhea Lab Data Result diagrams: 06/05/21 08:30 06/05/21 08:30 Labs: Lab Results 06/05/21 06/05/21 06/05/21 Range/Units 08:30 08:30 08:30 WBC 4.9 (4.5-11.0) X10^3/uL RBC 3.03 L (4.5-5.9) X10^6/uL Hgb 7.9 L (13.5-17.5) g/dL Hct 24.8 L (41-53) % MCV 82.0 (80-100) fL MCH 26.2 (26-34) PG MCHC 31.9 (30-36) % RDW 17.1 H (11.6-14.8) % Plt Count 105 L (150-400) X10^3/uL Neut % (Auto) 69.9 (50-75) % Lymph % (Auto) 17.1 L (25-40) % [place] % (Auto) 7.3 (3-14) % Eos % (Auto) 5.2 H (2-4) % Baso % (Auto) 0.5 (0-2) % Neut # (Auto) 3400 (2842-8193) /uL Lymph # (Auto) 800 L (9249-5888) /uL [place] # (Auto) 400 (0-900) /uL Eos # (Auto) 300 (0-450) /uL Baso # (Auto) 0 (0-100) /uL PT (10.1-12.7) SECONDS INR (0.9-1.3) Sodium 136 L (137-145) mmol/L Potassium 4.4 (3.4-5.1) mmol/L Chloride 109 H (98-107) mmol/L Carbon Dioxide 23 (22-32) mmol/L BUN 16 (9-20) mg/dL Creatinine 0.65 L (0.66-1.25) mg/dL Estimated GFR > 60.0 (>60) mL/min BUN/Creatinine Ratio 24.6 H (6-22) Glucose 183 H (80-110) mg/dL Calcium 8.5 (8.4-10.2) mg/dL Total Bilirubin 0.5 (0.2-1.3) mg/dL AST 36 (17-59) IU/L ALT 23 (<50) IU/L Alkaline Phosphatase 110 (38-126) U/L Total Protein 5.8 L (6.3-8.2) g/dL Albumin 2.9 L (3.5-5.0) g/dL Globulin 2.9 (1.7-4.1) g/dL Albumin/Globulin Ratio 1.0 (1.0-2.8) Lipase 190 (23-300) U/L SARS-CoV-2 (PCR) (Negative) Blood Type O Positive Antibody Screen Negative Crossmatch See Detail 06/05/21 06/05/21 Range/Units 08:30 09:15 WBC (4.5-11.0) X10^3/uL RBC (4.5-5.9) X10^6/uL Hgb (13.5-17.5) g/dL Hct (41-53) % MCV (80-100) fL MCH (26-34) PG MCHC (30-36) % RDW (11.6-14.8) % Plt Count (150-400) X10^3/uL Neut % (Auto) (50-75) % Lymph % (Auto) (25-40) % [place] % (Auto) (3-14) % Eos % (Auto) (2-4) % Baso % (Auto) (0-2) % Neut # (Auto) (4359-5179) /uL Lymph # (Auto) (1355-1014) /uL [place] # (Auto) (0-900) /uL Eos # (Auto) (0-450) /uL Baso # (Auto) (0-100) /uL PT 14.8 H (10.1-12.7) SECONDS INR 1.3 (0.9-1.3) Sodium (137-145) mmol/L Potassium (3.4-5.1) mmol/L Chloride (98-107) mmol/L Carbon Dioxide (22-32) mmol/L BUN (9-20) mg/dL Creatinine (0.66-1.25) mg/dL Estimated GFR (>60) mL/min BUN/Creatinine Ratio (6-22) Glucose (80-110) mg/dL Calcium (8.4-10.2) mg/dL Total Bilirubin (0.2-1.3) mg/dL AST (17-59) IU/L ALT (<50) IU/L Alkaline Phosphatase (38-126) U/L Total Protein (6.3-8.2) g/dL Albumin (3.5-5.0) g/dL Globulin (1.7-4.1) g/dL Albumin/Globulin Ratio (1.0-2.8) Lipase (23-300) U/L SARS-CoV-2 (PCR) Negative (Negative) Blood Type Antibody Screen Crossmatch Critical Care Time Critical Care Time Attestation: The high probability of a clinically significant, sudden or life threatening deterioration of the [CV/GI] system(s) required my full and direct attention, intervention and personal management. The aggregate critical care time was [30] minutes. This time is in addition to time spent performing reported procedures but includes the following: [x] Data Review and interpretation [x] Patient assessment and monitoring of vital signs [x] Documentation [x] Medication orders and management Discharge Plan Departure Patient Disposition: [facility] Clinical Impression: Acute upper gastrointestinal bleeding Esophageal varices Qualifiers: Esophageal varices type: unspecified type Esophageal varices bleeding: with bleeding Qualified Code(s): I85.01 - Esophageal varices with bleeding Prescriptions: No Action nadolol 20 MG tablet 20 mg PO QPM Qty: 0 RF: 0 allopurinol 100 MG tablet 300 mg PO QDAY Qty: 0 RF: 0 multivitamin Tablet 1 tab PO DAILY RF: 0 milk thistle 500 mg Capsule 1,000 mg PO DAILY RF: 0 thiamine HCl (vitamin B1) [Vitamin B-1] 250 mg Tablet 250 mg PO DAILY RF: 0 lisinopril 20 mg Tablet 20 mg PO DAILY RF: 0 metformin 1,000 mg tablet 1,000 mg BID RF: 0 omeprazole 40 mg capsule,delayed release(DR/EC) 40 mg PO QPM RF: 0 tamsulosin 0.4 mg capsule 0.4 mg PO DAILY RF: 0 glipizide 2.5 mg tablet extended release 24hr 2.5 mg PO BID RF: 0 simvastatin 20 mg tablet 20 mg PO DAILY RF: 0 loratadine 10 mg Tablet 10 mg PO DAILY RF: 0 Referrals: Arvind Eli MD [Primary Care Provider] -
[2021-06-05 08:45] LABS: Add Manual Diff / Slide Review NO; Basophils Absolute Auto 0 /uL (0-100); Basophils Percent Auto 0.5 % (0-2); Eosinophils Absolute Auto 300 /uL (0-450); Eosinophils Percent Auto 5.2 % (2-4); Hematocrit 24.8 % (41-53); Hemoglobin 7.9 g/dL (13.5-17.5); Lymphocytes Absolute Auto 800 /uL (1100-4500); Lymphocytes Percent Auto 17.1 % (25-40); Mean Corpuscular HGB Conc 31.9 % (30-36); Mean Corpuscular Hemoglobin 26.2 PG (26-34); Monocytes Absolute Auto 400 /uL (0-900); Monocytes Percent Auto 7.3 % (3-14); Neutrophils Absolute Auto 3400 /uL (1500-7000); Neutrophils Percent Auto 69.9 % (50-75); Platelet Count 105 X10^3/uL (150-400); Red Blood Cell Count 3.03 X10^6/uL (4.5-5.9); Red Cell Distribution Width 17.1 % (11.6-14.8); White Blood Cell Count 4.9 X10^3/uL (4.5-11.0)
[2021-06-05 08:47] LABS: INR 1.3 (0.9-1.3); Prothrombin Time 14.8 SECONDS (10.1-12.7)
[2021-06-05] MEDS: OCTREOTIDE 500 MCG in SODIUM CHLORIDE 0.9% 100 ML 5.05 ML IV (08:52)
[2021-06-05] MEDS: PANTOPRAZOLE 40 MG VIAL IV ×2 (08:54→10:16)
[2021-06-05] MEDS: OCTREOTIDE 100 MCG/ML VIAL 50 MCG IV (08:54)
[2021-06-05] MEDS: ONDANSETRON 4 MG/2 ML INJ IV (08:54)
[2021-06-05 08:55] LABS: Alanine Aminotransferase 23 IU/L (<50); Albumin 2.9 g/dL (3.5-5.0); Alkaline Phosphatase 110 U/L (38-126); Aspartate Aminotransferase 36 IU/L (17-59); BUN Creatinine Ratio 24.6 (6-22); Bilirubin Total 0.5 mg/dL (0.2-1.3); Blood Urea Nitrogen 16 mg/dL (9-20); Calcium 8.5 mg/dL (8.4-10.2); Carbon Dioxide 23 mmol/L (22-32); Chloride 109 mmol/L (98-107); Estimated Glomerular Filt Rate > 60.0 mL/min (>60); Globulin 2.9 g/dL (1.7-4.1); Glucose 183 mg/dL (80-110); HEMOLYSIS < 15 (0-50); Lipase 190 U/L (23-300); Potassium 4.4 mmol/L (3.4-5.1); Sodium 136 mmol/L (137-145); Total Protein 5.8 g/dL (6.3-8.2)
[2021-06-05] MEDS: METOCLOPRAMIDE 10 MG/2 ML INJ IV (09:17)
[2021-06-05 09:35] LABS: COVID19 -Nasal RAPID Negative (Negative)
[2021-06-05] MEDS: cefTRIAXone 1,000 MG in SODIUM CHLORIDE 0.9% 100 ML 200 ML IV (10:15)
--- NOTE | 2021-06-05 11:21 | PC.NURSE ---
report called to enedina russ RN # [phone]
== END 2021-06-05 12:12 | disposition short-term general hospital (02) ==
PROVIDERS: Emergency Provider Emergency Medicine; PCP Internal Medicine
DX: K92.2 Gastrointestinal hemorrhage, unspecified (principal); I85.01 Esophageal varices with bleeding; Z20.822 Contact with and (suspected) exposure to COVID-19
CPT/HCPCS: 36430; 80053; 83690; 85025; 85610; 86850; 86900; 86901; 87635; 93005; 96365; 96366; 96367; 96375; 96376; 99284; 99291; 99292; C9803; P9016; C9113; J0696; J2354; J2405; J2765

== ENCOUNTER → 2021-08-03 09:26 | Outpatient (CLI) | payer MEDICARE, OTHER, SELFPAY ==
[2020-12-26 08:04] VITALS: BMI 22.8
[2021-08-03 14:51] LABS: COVID19 -Nasal RAPID Negative (Negative)
== END ==
PROVIDERS: PCP Internal Medicine; Visit Provider Nurse Practitioner Family
DX: Z20.822 Contact with and (suspected) exposure to COVID-19 (principal); Z01.812 Encounter for preprocedural laboratory examination
CPT/HCPCS: 87635; C9803

== ENCOUNTER → 2021-08-05 08:00 | Day surgery (SDC) | payer MEDICARE, OTHER, SELFPAY ==
[2020-12-26 08:04] VITALS: BMI 22.8
[2021-08-05 08:25] VITALS: BP 126/72; PULSE 62; RESP 12; TEMP 36.6; O2SAT 100; BMI 22.1
--- NOTE | 2021-08-05 09:05 | PM.HP.1 ---
History of Present Illness History of Present Illness Date Patient Seen: 08/05/21 Chief complaint: SDC Narrative: Alcoholic cirrhosis with history of bleeding esophageal varices. Last banding in May. Need for follow-up EGD to evaluate whether further banding is necessary. Patient History Medical History Anemia Chronic alcohol abuse Diabetes Diverticulosis DVT (deep venous thrombosis) Esophageal 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 Foot pain, left Gastritis Gout Hallux valgus with bunions of left foot Hammertoe of second toe of left foot Hepatic cirrhosis Heterozygous factor V Leiden mutation Hiatal hernia Portal hypertensive gastropathy Ringing in ears Tubular adenoma Unspecified essential hypertension Surgical History History of cataract extraction with lens replacement History of colonoscopy History of esophagogastroduodenoscopy (EGD) (~08/27/20) History of total hip arthroplasty Family & Social History Social History: household members spouse,family Tobacco & Substance use: Tobacco type cannabis/marijuana Smoking Status Former smoker alcohol intake former alcohol intake frequency a few times a week Substance Use Type marijuana Meds Home Medications and Allergies Home Medications Medication Instructions Recorded Confirmed Type nadolol 20 mg tablet 20 mg PO QPM #0 11/22/11 08/05/21 History allopurinol 100 mg tablet 300 mg PO QDAY #0 05/29/13 08/05/21 History glipizide 2.5 mg tablet, extended 2.5 mg PO BID 06/25/20 08/05/21 History release 24 hr lisinopril 20 mg tablet 20 mg PO DAILY 06/25/20 08/05/21 History loratadine 10 mg tablet 10 mg PO DAILY 06/25/20 08/05/21 History metformin 1,000 mg tablet 1,000 mg BID 06/25/20 08/05/21 History omeprazole 40 mg capsule,delayed 40 mg PO QPM 06/25/20 08/05/21 History release simvastatin 20 mg tablet 20 mg PO DAILY 06/25/20 08/05/21 History tamsulosin 0.4 mg capsule 0.4 mg PO DAILY 06/25/20 08/05/21 History milk thistle 500 mg capsule 1,000 mg PO DAILY 12/16/20 08/05/21 History multivitamin 1 tab PO DAILY 12/16/20 08/05/21 History thiamine HCl (vitamin B1) 250 mg 250 mg PO DAILY 12/16/20 08/05/21 History tablet (Vitamin B-1) Allergies Allergy/AdvReac Type Severity Reaction Status Date / Time hydrocodone Allergy Mild Itch Verified 08/05/21 08:20 NSAIDS (Non-Steroidal Allergy Unknown Physician Verified 08/05/21 08:20 Anti-Inflamma said not to take codeine AdvReac Mild CONSTIPATION, Verified 08/05/21 08:20 BUT HAS NEVER TAKEN WITH STOOL SOFTENER Exam Vital Signs (past 8 hours): - 08/05/21 08:25 Temperature 97.8 F Pulse Rate 62 Respiratory Rate 12 Blood Pressure 126/72 Pulse Oximetry 100 Oxygen Delivery Method Room Air Narrative Exam Narrative: Oropharynx free of lesions Chest clear to auscultation percussion Cardiac exam reveals no S3 or murmur Assessment & Plan Assessment & Plan narrative: History of esophageal varices need to confirm completely eradicated or whether they need further treatment. EGD to be performed. Risks, benefits, alternatives have been explained. Time Spent With Patient Critical Care time: I spent a total of [] minutes of critical care time on this patient's care today; this time is exclusive of procedural time.
--- NOTE | 2021-08-05 09:07 | PM.OP.EGD ---
Operative Date/Time/Diagnoses Date of procedure: 08/05/21 Pre-op diagnosis: See indication and findings Procedure & Clinicians Study performed: EGD and possible variceal banding Indications: History of esophageal varices need for surveillance and possible further banding Surgeon: Nellie Varner Procedure Notes Procedure in detail: After informed consent was obtained patient was placed in left lateral decubitus position. The video upper scope was placed into the oropharynx and with the patient's help swelled into the esophagus. The esophagus stomach and duodenum were carefully examined. On withdrawal retroflexed view the GE junction was performed. The scope was removed. The patient of the procedure well. Blood loss none Complications none Sedation mac Findings 1. Esophagus with 3 sometimes confluent columns of varices from at least 30 cm to the squamocolumnar junction at 40 cm. At the end of the procedure 5 bands were placed without difficulty and without hemorrhage. 2. Gastropathy of portal hypertension 3. Normal duodenal bulb and sweep Patient will need follow-up EGD within a month at [facility] for almost certain further banding
[2021-08-05 09:35] VITALS: BP 89/62; PULSE 64; RESP 12; TEMP 36.3; O2SAT 97
[2021-08-05 09:40] VITALS: BP 73/49; PULSE 66; RESP 12; O2SAT 99
[2021-08-05 09:45] VITALS: BP 134/68; PULSE 62; RESP 12; O2SAT 99
[2021-08-05 09:53] VITALS: BP 138/71; PULSE 62; RESP 12; O2SAT 99
[2021-08-05 09:59] VITALS: BP 136/74; PULSE 58; RESP 12; TEMP 36.6; O2SAT 100
== END | disposition home or self-care (01) ==
PROVIDERS: PCP Internal Medicine; Referring Provider Internal Medicine Gastroenterology; Visit Provider Internal Medicine Gastroenterology
PROC: 0DJ08ZZ Inspection of Upper Intestinal Tract, Via Natural or Artificial Opening Endoscopic (ICD-10-PCS; CPT 43235; principal; 2021-08-05 09:30)
DX: I85.00 Esophageal varices without bleeding (principal); K76.6 Portal hypertension; K31.89 Other diseases of stomach and duodenum; K70.30 Alcoholic cirrhosis of liver without ascites
CPT/HCPCS: 43244; J2704

== ENCOUNTER → 2021-09-07 09:40 | Outpatient (CLI) | payer MEDICARE, OTHER, SELFPAY ==
[2020-12-26 08:04] VITALS: BMI 22.8
[2021-09-07 14:28] LABS: COVID19 -Nasal RAPID Negative (Negative)
== END ==
PROVIDERS: PCP Internal Medicine; Visit Provider Physician Assistant
DX: Z20.822 Contact with and (suspected) exposure to COVID-19 (principal); Z01.812 Encounter for preprocedural laboratory examination
CPT/HCPCS: 87635; C9803

== ENCOUNTER 2021-09-08 08:54 | Day surgery (SDC) | payer MEDICARE, OTHER, SELFPAY ==
[2020-12-26 08:04] VITALS: BMI 22.8
[2021-09-08 09:14] VITALS: BP 109/65; PULSE 60; RESP 16; TEMP 36.8; O2SAT 99
[2021-09-08 09:22] VITALS: BMI 21.4
--- NOTE | 2021-09-08 09:26 | PM.HP.1 ---
History of Present Illness History of Present Illness Date Patient Seen: 09/08/21 Time Patient Seen: 09:26 Chief complaint: SDC Narrative: Esophageal varices status post banding history here for surveillance Patient History Medical History Anemia Chronic alcohol abuse Diabetes Diverticulosis DVT (deep venous thrombosis) Esophageal 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 Foot pain, left Gastritis Gout Hallux valgus with bunions of left foot Hammertoe of second toe of left foot Hepatic cirrhosis Heterozygous factor V Leiden mutation Hiatal hernia Portal hypertensive gastropathy Ringing in ears Tubular adenoma Unspecified essential hypertension Surgical History History of cataract extraction with lens replacement History of colonoscopy History of esophagogastroduodenoscopy (EGD) (~08/27/20) History of total hip arthroplasty Family & Social History Social History: household members spouse,family Tobacco & Substance use: Tobacco type cannabis/marijuana Smoking Status Former smoker alcohol intake former alcohol intake frequency a few times a week Substance Use Type marijuana Meds Home Medications and Allergies Home Medications Medication Instructions Recorded Confirmed Type nadolol 20 mg tablet 20 mg PO QPM #0 11/22/11 09/08/21 History allopurinol 100 mg tablet 300 mg PO QDAY #0 05/29/13 09/08/21 History glipizide 2.5 mg tablet, extended 2.5 mg PO BID 06/25/20 09/08/21 History release 24 hr lisinopril 20 mg tablet 20 mg PO DAILY 06/25/20 09/08/21 History loratadine 10 mg tablet 10 mg PO DAILY 06/25/20 09/08/21 History metformin 1,000 mg tablet 1,000 mg BID 06/25/20 09/08/21 History omeprazole 40 mg capsule,delayed 40 mg PO QPM 06/25/20 08/05/21 History release simvastatin 20 mg tablet 20 mg PO DAILY 06/25/20 08/05/21 History tamsulosin 0.4 mg capsule 0.4 mg PO DAILY 06/25/20 08/05/21 History milk thistle 500 mg capsule 1,000 mg PO DAILY 12/16/20 09/08/21 History multivitamin 1 tab PO DAILY 12/16/20 09/08/21 History thiamine HCl (vitamin B1) 250 mg 250 mg PO DAILY 12/16/20 08/05/21 History tablet (Vitamin B-1) Allergies Allergy/AdvReac Type Severity Reaction Status Date / Time hydrocodone Allergy Mild Itch Verified 08/05/21 08:20 NSAIDS (Non-Steroidal Allergy Unknown Physician Verified 08/05/21 08:20 Anti-Inflamma said not to take codeine AdvReac Mild CONSTIPATION, Verified 08/05/21 08:20 BUT HAS NEVER TAKEN WITH STOOL SOFTENER Review of Systems Review of Systems ROS: Yes All systems reviewed with the patient and are negative except as otherwise documented Exam Vital Signs (past 8 hours): - 09/08/21 09:14 Temperature 98.2 F Pulse Rate 60 Respiratory Rate 16 Blood Pressure 109/65 Pulse Oximetry 99 Oxygen Delivery Method Room Air Const General: cooperative and comfortable Orientation: alert HENMT Head: normocephalic Ears: external ears normal Nose: external nose normal Face and sinus: normal facial exam Eyes General: appearance normal, both eyes and all related structures Neck Neck: normal visual inspection Chest Chest: normal inspection of the chest Resp Effort & Inspection: normal respiratory effort Cardio Rate: regular rate GI Inspection: normal to inspection Palpation: tender Skin General: no rashes or lesions noted and No jaundice Neuro General: patient alert and moves all extremities Cognition: normal cognition Speech: speech normal Extrem General: no pedal edema Psych Appearance: grossly normal Assessment & Plan Assessment & Plan narrative: Esophageal varices status post banding. EGD is planned today for surveillance Time Spent With Patient Critical Care time: I spent a total of [] minutes of critical care time on this patient's care today; this time is exclusive of procedural time.
--- NOTE | 2021-09-08 09:28 | PM.PREOP ---
Pre-operative Note COVID-19 COVID-19 status: Negative Result date/Date tested (Pos, Neg/Pending): 09/07/21 Interval Note History & Physical reviewed/Exam performed by Physician: Yes Changes to H&P: No H&P completed within 30 days and has changed as indicated here:: Today ASA Class (for procedural sedation): III
[2021-09-08] MEDS: SODIUM CHLORIDE 0.9% 1,000 ML 84 ML IV (09:36)
[2021-09-08] MEDS: LIDOCAINE VISCOUS 2% 15 ML SOLUTION PO (09:58)
--- NOTE | 2021-09-08 10:11 | PM.OP.EGD ---
Operative Date/Time/Diagnoses Date of procedure: 09/08/21 Time of procedure: 10:11 Pre-op diagnosis: Esophageal varices Post-op diagnosis: same Procedure & Clinicians Study performed: EGD Same procedure as scheduled: Yes Indications: Esophageal varices status post recent banding x5 Surgeon: Alfred Gonsalves Procedure Notes SCOAP/Timeout: Done Procedure in detail: After the risks and benefits were explained, written and verbal informed consent was obtained. The patient was brought into the procedure room and placed into the left lateral decubitus position. Please see nurse mechanical applications engineer sedation notes. The scope was introduced into the mouth through the bite block and advanced under direct visualization to the 2nd portion of the duodenum. The scope was slowly withdrawn carefully examining the mucosa for any defects or lesions. Retroflexed views were accomplished in the stomach. The stomach was decompressed, the scope was then removed from the patient who tolerated the procedure well. Sedation minutes: 11 Specimen(s): none sent Complications: none Impression: 1. Duodenum this is visually normal from the bulb through to the 2nd portion 2. Stomach: Portal gastropathy was appreciated throughout. No ulcers no mass lesions no outlet obstruction no varices in the stomach. 3. Esophagus: In the 3 o'clock position in the distal esophagus it appeared as though there was a variceal question was greater than 5 mm in a in size and therefore amenable to at least 1 further band. The remainder of the esophagus looked excellent with respect to obliteration. Photographs were taken. We connected the AP Ulule banding unit and readvanced the scope into the distal esophagus. A night attempted to suction this variceal question up into the banding device but there was clearly too much scarring and we could not get this area to fill the banding cup. I therefore elected to not attempt to place a band as it would almost certainly just slide off Endoscopic diagnosis 1. Esophageal varices with acceptable obliteration 2. Portal gastropathy Post-procedure Plan for aftercare: Repeat EGD in 6 months for surveillance. Disposition: PACU
[2021-09-08 10:12] VITALS: BP 78/43; PULSE 62; RESP 12; TEMP 36.4; O2SAT 100
[2021-09-08 10:17] VITALS: BP 82/50; PULSE 63; RESP 12; O2SAT 99
--- NOTE | 2021-09-08 10:21 | SUR.PHASEI ---
Received to PACU after EGD with sedation. Report received from BRENDA Matt and ANTHONY Javier. BP as noted. BRENDA Matt aware. IVF opened and head of bed flat.
[2021-09-08 10:22] VITALS: BP 85/46; PULSE 59; RESP 12; O2SAT 100
[2021-09-08 10:27] VITALS: BP 112/60; BP 92/25; PULSE 60; PULSE 61; RESP 12; RESP 16; O2SAT 100
[2021-09-08 10:37] VITALS: BP 116/78; PULSE 60; RESP 100; TEMP 36.4; O2SAT 16
== END 2021-09-08 10:56 | disposition home or self-care (01) ==
PROVIDERS: PCP Internal Medicine; Referring Provider Internal Medicine Gastroenterology; Visit Provider Internal Medicine Gastroenterology
PROC: 0DJ08ZZ Inspection of Upper Intestinal Tract, Via Natural or Artificial Opening Endoscopic (ICD-10-PCS; CPT 43235; principal; 2021-09-08 10:00)
DX: I85.10 Secondary esophageal varices without bleeding (principal); Z09 Encounter for follow-up examination after completed treatment for conditions other than malignant neoplasm; F10.11 Alcohol abuse, in remission; Z86.19 Personal history of other infectious and parasitic diseases; E11.9 Type 2 diabetes mellitus without complications; Z79.84 Long term (current) use of oral hypoglycemic drugs; I10 Essential (primary) hypertension; K31.89 Other diseases of stomach and duodenum
CPT/HCPCS: 43235; 82962; J2704

== ENCOUNTER → 2022-08-19 11:58 | Outpatient (CLI) | payer MEDICARE, OTHER, SELFPAY ==
[2020-12-26 08:04] VITALS: BMI 22.8
--- NOTE | 2022-08-19 | DI.US.S_ITS ---
PROCEDURE: US ABDOMEN COMPLETE INDICATIONS: ESOPHAGEAL/GASTRIC VARICES,ELEVATED LFT/CIRRHOSIS TECHNIQUE: Real-time scanning was performed of the abdominal and retroperitoneal organs, with image documentation. COMPARISON: [facility], CT, CT ABDOMEN WO/W CON, 04/02/2020, 11:43. [facility], US, US ABDOMEN COMPLETE, 02/29/2020, 9:44. FINDINGS: Liver: The liver demonstrates a coarse, nodular appearance. There is recanalization of the umbilical vein. The liver demonstrates normal size and overall normal echogenicity. Gallbladder: Likely layering sludge can be seen within the gallbladder. The gallbladder wall is minimally thickened at 4 mm. No specific pericholecystic fluid is seen. The sonographic Cutler sign is negative. Biliary ducts: Intrahepatic bile ducts are non-dilated. Extrahepatic bile duct caliber measures 3 mm. Normal is 6-7 mm or less in diameter, or 10 mm or less post-cholecystectomy. Pancreas: Visualized portions of the pancreas are sonographically normal. Spleen: Spleen is normal in size and homogeneous in echotexture. Kidneys: Kidneys are normal in size and echotexture. Right kidney measures 10.6 cm long; left kidney measures 11.8 cm long. No hydronephrosis or nephrolithiasis. No solid masses. Aorta: Visualized aorta is normal in caliber at less than 3 cm. Iliacs: Proximal common iliac arteries are normal in caliber at less than 2.5 cm. IVC: Intrahepatic inferior vena cava is patent. Miscellaneous: No free abdominal fluid. This is a technically limited study. IMPRESSION: Cirrhotic appearing liver, with a recanalized umbilical vein. Likely sludge can be seen layering within the gallbladder. The gallbladder wall is minimally thickened to 4 mm, which is nonspecific in this patient with cirrhosis. No additional gallbladder abnormality is seen by ultrasound. Dictated by: Asim Jurado M.D. on 08/19/2022 at 17:31 Approved by: Asim Jurado M.D. on 08/19/2022 at 17:32
== END ==
PROVIDERS: PCP Internal Medicine; Referring Provider Internal Medicine Gastroenterology; Visit Provider Internal Medicine Gastroenterology
DX: I85.00 Esophageal varices without bleeding (principal); I86.4 Gastric varices; R74.8 Abnormal levels of other serum enzymes; K70.30 Alcoholic cirrhosis of liver without ascites
CPT/HCPCS: 76700

== ENCOUNTER 2022-09-27 07:11 | Day surgery (SDC) | payer MEDICARE, OTHER, SELFPAY ==
[2020-12-26 08:04] VITALS: BMI 22.8
[2022-09-27 07:41] VITALS: BP 107/66; PULSE 55; RESP 16; TEMP 35.8; O2SAT 107; BMI 22.1
[2022-09-27 07:57] LABS: COVID19 -Nasal RAPID Negative (Negative)
--- NOTE | 2022-09-27 08:01 | PM.HP.1 ---
History of Present Illness History of Present Illness Date Patient Seen: 09/27/22 Time Patient Seen: 08:01 Chief complaint: EGD W/POSS BX Narrative: History of esophageal varices. He continues to drink alcohol to some degree. He is here for surveillance. Patient History Medical History Anemia Chronic alcohol abuse Diabetes Diverticulosis DVT (deep venous thrombosis) Esophageal 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 Foot pain, left Gastritis Gout Hallux valgus with bunions of left foot Hammertoe of second toe of left foot Hepatic cirrhosis Heterozygous factor V Leiden mutation Hiatal hernia Portal hypertensive gastropathy Ringing in ears Tubular adenoma Unspecified essential hypertension Surgical History History of cataract extraction with lens replacement History of colonoscopy History of esophagogastroduodenoscopy (EGD) (~08/27/20) History of total hip arthroplasty Family & Social History Social History: household members spouse,family Tobacco & Substance use: Tobacco type cannabis/marijuana Smoking Status Former smoker alcohol intake former alcohol intake frequency a few times a week Substance Use Type marijuana Meds Home Medications and Allergies Home Medications Medication Instructions Recorded Confirmed Type nadolol 20 mg tablet 20 mg PO QPM ##0 11/22/11 09/27/22 History allopurinol 100 mg tablet 300 mg PO QDAY ##0 05/29/13 09/27/22 History glipizide 2.5 mg tablet, extended 2.5 mg PO BID 06/25/20 09/27/22 History release 24 hr lisinopril 20 mg tablet 20 mg PO DAILY 06/25/20 09/27/22 History loratadine 10 mg tablet 10 mg PO DAILY 06/25/20 09/27/22 History metformin 1,000 mg tablet 1,000 mg BID 06/25/20 09/27/22 History omeprazole 40 mg capsule,delayed 40 mg PO QPM 06/25/20 09/27/22 History release simvastatin 20 mg tablet 20 mg PO DAILY 06/25/20 09/27/22 History tamsulosin 0.4 mg capsule 0.4 mg PO DAILY 06/25/20 09/27/22 History milk thistle 500 mg capsule 1,000 mg PO DAILY 12/16/20 09/08/21 History multivitamin 1 tab PO DAILY 12/16/20 09/08/21 History thiamine HCl (vitamin B1) 250 mg 250 mg PO DAILY 12/16/20 08/05/21 History tablet (Vitamin B-1) Allergies Allergy/AdvReac Type Severity Reaction Status Date / Time hydrocodone Allergy Mild Itch Verified 09/27/22 07:35 NSAIDS (Non-Steroidal Allergy Unknown Physician Verified 09/27/22 07:35 Anti-Inflamma said not to take codeine AdvReac Mild CONSTIPATION, Verified 09/27/22 07:35 BUT HAS NEVER TAKEN WITH STOOL SOFTENER Review of Systems Review of Systems ROS: Yes All systems reviewed with the patient and are negative except as otherwise documented Exam Vital Signs (past 8 hours): - 09/27/22 07:41 Temperature 96.5 F L Pulse Rate 55 L Respiratory Rate 16 Blood Pressure 107/66 Pulse Oximetry 107 H Oxygen Delivery Method Room Air Oxygen Delivery Method Room Air Const General: cooperative HENMT Head: normal to inspection Eyes General: appearance normal, both eyes and all related structures Neck Neck: normal visual inspection Chest Chest: normal inspection of the chest Resp Effort & Inspection: normal respiratory effort Cardio Rate: regular rate GI Inspection: normal to inspection Skin General: no rashes or lesions noted Neuro General: patient alert and patient awake Extrem General: normal to inspection and no pedal edema Psych Appearance: grossly normal Objective Labs Labs: Laboratory Results - last 24 hr 09/27/22 07:27 SARS-CoV-2 (PCR) Negative Assessment & Plan Assessment & Plan narrative: 67-year-old male with a history of alcohol-induced cirrhosis with esophageal varices status post banding. He is here for surveillance upper endoscopy. Time Spent With Patient Critical Care time: I spent a total of [] minutes of critical care time on this patient's care today; this time is exclusive of procedural time.
--- NOTE | 2022-09-27 08:03 | PM.PREOP ---
Pre-operative Note COVID-19 COVID-19 status: Negative Result date/Date tested (Pos, Neg/Pending): 09/27/22 Criteria for continued procedure: Possibility delay results in more complex future surgery or treatment Interval Note History & Physical reviewed/Exam performed by Physician: Yes Changes to H&P: No ASA Class (for procedural sedation): III
[2022-09-27] MEDS: SODIUM CHLORIDE 0.9% 1,000 ML 100 ML IV (08:41)
--- NOTE | 2022-09-27 09:03 | PM.OP.EGD ---
Operative Date/Time/Diagnoses Date of procedure: 09/27/22 Time of procedure: 09:03 Pre-op diagnosis: Esophageal varices Post-op diagnosis: same Procedure & Clinicians Study performed: EGD Same procedure as scheduled: Yes Indications: Esophageal varices Surgeon: Alfred Gonsalves Procedure Notes SCOAP/Timeout: Done Procedure in detail: After the risks and benefits were explained, written and verbal informed consent was obtained. The patient was brought into the procedure room and placed into the left lateral decubitus position. Please see nurse marketing strategy analyst notes for sedation details. The scope was introduced into the mouth through the bite block and advanced under direct visualization to the 2nd portion of the duodenum. The scope was slowly withdrawn carefully examining the mucosa for any defects or lesions. Retroflexed views were accomplished in the stomach. The stomach was decompressed, the scope was then removed from the patient who tolerated the procedure well. The banding device was connected scope was readvanced into the distal esophagus. See below. No bands were deployed. The scope was finally removed from the patient who tolerated the procedure well. Sedation minutes: 12 Specimen(s): none sent Complications: none Impression: 1. Duodenum: This was visually unremarkable from the bulb through to the 2nd portion. 2. Stomach: Portal gastropathy was identified throughout. No varices. No other significant mucosal pathology throughout including retroflexed views. 3. Esophagus: No evidence of stigmata of recent bleeding. No high-risk areas. The patient did have fairly well obliterated varices that were evident. Everything mostly flattened out with air insufflation apart from the column in the 3-4 o'clock location in the very distal esophagus.. I once again connected the cook banding device and readvanced the scope to apply 1 or 2 bands to this column but it did not sufficiently suctioned up into the banding cup consistent with significant underlying submucosal scarring from prior banding. No bands were therefore placed today. Endoscopic diagnosis 1. Portal gastropathy 2. Small distal esophageal varices not amenable to further banding at this time. Post-procedure Plan for aftercare: 1. Continue nadolol 2. Repeat EGD 1 year for surveillance. Disposition: PACU
[2022-09-27 09:14] VITALS: BP 100/49; PULSE 59; RESP 16; TEMP 36.2; O2SAT 97
[2022-09-27 09:19] VITALS: BP 103/53; PULSE 60; RESP 13; O2SAT 97
[2022-09-27 09:25] VITALS: BP 110/63; PULSE 56; RESP 9; TEMP 36.3; O2SAT 98
[2022-09-27 09:30] VITALS: BP 106/57; PULSE 58; RESP 16; TEMP 36.3; O2SAT 98
== END 2022-09-27 09:46 | disposition home or self-care (01) ==
PROVIDERS: PCP Internal Medicine; Referring Provider Internal Medicine Gastroenterology; Visit Provider Internal Medicine Gastroenterology
PROC: 0DJ08ZZ Inspection of Upper Intestinal Tract, Via Natural or Artificial Opening Endoscopic (ICD-10-PCS; CPT 43235; principal; 2022-09-27 08:30)
DX: K70.30 Alcoholic cirrhosis of liver without ascites (principal); I85.10 Secondary esophageal varices without bleeding; F10.10 Alcohol abuse, uncomplicated; E11.9 Type 2 diabetes mellitus without complications; Z79.84 Long term (current) use of oral hypoglycemic drugs; I10 Essential (primary) hypertension; Z20.822 Contact with and (suspected) exposure to COVID-19; K76.6 Portal hypertension; K31.89 Other diseases of stomach and duodenum
CPT/HCPCS: 43235; 87635; C9803; J2704; J3010

== ENCOUNTER → 2023-02-08 08:35 | Outpatient (CLI) | payer MEDICARE, OTHER, SELFPAY ==
[2020-12-26 08:04] VITALS: BMI 22.8
--- NOTE | 2023-02-08 | DI.US.S_ITS ---
PROCEDURE: US ABDOMEN COMPLETE INDICATIONS: GASTRIC VARICES/CIRRHOSIS TECHNIQUE: Real-time scanning was performed of the abdominal and retroperitoneal organs, with image documentation. COMPARISON: [facility], US, US ABDOMEN COMPLETE, 08/19/2022, 12:21. FINDINGS: Liver: Liver is normal in size. Coarsely echogenic liver parenchyma is seen, no discrete hepatic lesion. Main portal vein is patent. Recannulized umbilical vein is noted. Gallbladder: Numerous tiny mobile stones are seen in dependent portion of gallbladder lumen. No gall bladder wall thickening or pericholecystic fluid. No sonographic Cutler's sign. Biliary ducts: Intrahepatic bile ducts are non-dilated. Extrahepatic bile duct caliber measures 4.8 mm. Normal is 6-7 mm or less in diameter, or 10 mm or less post-cholecystectomy. Pancreas: Not well seen due to overlying bowel gas. Spleen: Spleen is normal in size and homogeneous in echotexture. Kidneys: Kidneys are normal in size and echotexture. Right kidney measures 10.4 cm long; left kidney measures 11.5 cm long. No hydronephrosis or nephrolithiasis. No solid masses. Aorta: Visualized aorta is normal in caliber at less than 3 cm. Iliacs: Proximal common iliac arteries are normal in caliber at less than 2.5 cm. IVC: Intrahepatic inferior vena cava is patent. Miscellaneous: No free abdominal fluid. IMPRESSION: 1. Cirrhotic appearing liver without discrete hepatic lesion. Recannulized umbilical vein and patent main portal vein. 2. Cholelithiasis without sonographic evidence of acute cholecystitis. No biliary ductal dilatation. 3. Rest of the exam is unremarkable. Dictated by: Philip Gibson M.D. on 02/08/2023 at 10:47 Approved by: Philip Gibson M.D. on 02/08/2023 at 10:49
== END ==
PROVIDERS: PCP Internal Medicine; Referring Provider Internal Medicine Gastroenterology; Visit Provider Internal Medicine Gastroenterology
DX: I85.00 Esophageal varices without bleeding (principal); I86.4 Gastric varices; K70.30 Alcoholic cirrhosis of liver without ascites; R74.8 Abnormal levels of other serum enzymes; K80.20 Calculus of gallbladder without cholecystitis without obstruction
CPT/HCPCS: 76700

== ENCOUNTER → 2023-08-15 11:03 | Outpatient (CLI) | payer MEDICARE, OTHER, SELFPAY ==
[2020-12-26 08:04] VITALS: BMI 22.8
--- NOTE | 2023-08-15 | DI.US.S_ITS ---
PROCEDURE: US ABDOMEN LIMITED INDICATIONS: CIRRHOSIS TECHNIQUE: Real-time focused scanning was performed of the abdomen, with image documentation. COMPARISON: [facility], US, US ABDOMEN COMPLETE, 02/08/2023, 9:07. FINDINGS: Liver measures 15.3 cm with overall coarsened echotexture. No focal nodule. Gallbladder demonstrates multiple mobile foci of echogenicity. Wall thickness is normal measuring 1.8 mm. Common bile duct measures 4.5 mm. IMPRESSION: Coarsened hepatic echotexture without focal nodule. Cholelithiasis. Dictated by: Rain Camacho M.D. on 08/16/2023 at 15:10 Approved by: Rain Camacho M.D. on 08/16/2023 at 15:11
== END ==
PROVIDERS: PCP Internal Medicine; Referring Provider Internal Medicine Gastroenterology; Visit Provider Internal Medicine Gastroenterology
DX: K70.30 Alcoholic cirrhosis of liver without ascites (principal); K80.20 Calculus of gallbladder without cholecystitis without obstruction
CPT/HCPCS: 76705

== ENCOUNTER 2023-09-05 10:01 | Day surgery (SDC) | payer MEDICARE, OTHER, SELFPAY ==
[2020-12-26 08:04] VITALS: BMI 22.8
[2023-09-05] VITALS (8 sets, daily range): BP systolic 76–133; BP diastolic 48–69; PULSE 66–76; RESP 16–21; TEMP 36.2–36.7; O2SAT 96–100; BMI 22.8
--- NOTE | 2023-09-05 | PATH_ITS ---
[facility] Accession Number: [id number] No. of containers..01 Tissue . 01 Material submitted: . gastrointestinal site - ANTRUM BIOPSY . 01 Diagnosis: A. Gastric, Antrum, Biopsy: Gastric antral-type mucosa with mild reactive/chemical gastropathy, and focal mild acute inflammation. Negative for intestinal metaplasia and dysplasia. Negative for Helicobacter pylori organisms on immunohistochemistry. MRV 09/15/2023 1746 Local . 01 Electronically signed: . Gia Sales MD, Pathologist NPI- [id number] . 01 Gross description: . ANTRUM BIOPSY: Received in formalin is 1 fragment(s) of de la fuente, soft tissue measuring 0.2 x 0.1 x 0.1 cm submitted entirely in 1 cassette(s) /AMALIA 09/06/2023 1841 Local . 01 Microscopic: . A. An immunohistochemical stain was performed to evaluate for Helicobacter organisms and is negative. The control stain showed appropriate reactivity. . * This test was developed and its performance characteristics determined by [facility]. It has not been cleared or approved by the U.S. Food and Drug Administration. The FDA has determined that such clearance or approval is not necessary. This test is used for clinical purposes. It should not be regarded as investigational or for research. . 01 Pathologist provided ICD-10: R19.8 . 01 CPT . 082233, A43418 Specimen Comment: A courtesy copy of this report has been sent to [phone] Performed at: 01 [facility] [address] [place] [address] [address], [place], [place] [id number] MD Jhony Hart MD Phone: [phone]
[2023-09-05] MEDS: LACTATED RINGERS 1,000 ML 84 ML IV (11:08)
--- NOTE | 2023-09-05 11:43 | P.HP_ITS ---
History of Present Illness History of Present Illness Date Patient Seen: 09/05/23 Time Patient Seen: 11:43 Chief complaint: SDC Narrative: History of esophageal varices and banding here for surveillance. [facility], [facility] Medical History Heterozygous factor V Leiden mutation Unspecified essential hypertension DVT (deep venous thrombosis) Ringing in ears Gout Gastritis Diverticulosis Tubular adenoma Anemia Esophageal 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 Hiatal hernia Portal hypertensive gastropathy Chronic alcohol abuse Hepatic cirrhosis Diabetes Foot pain, left Hallux valgus with bunions of left foot Hammertoe of second toe of left foot Surgical History History of cataract extraction with lens replacement History of colonoscopy History of total hip arthroplasty History of esophagogastroduodenoscopy (EGD) (~08/27/20) Social History household members: spouse and family Smoking Status: Former smoker alcohol intake: former Meds Home Medications and Allergies Home Medications Medication Instructions Recorded Confirmed Type nadolol 20 mg tablet 20 mg PO QPM ##0 11/22/11 09/05/23 History allopurinol 100 mg tablet 300 mg PO QDAY ##0 05/29/13 09/05/23 History glipizide 2.5 mg tablet, extended 2.5 mg PO BID 06/25/20 09/05/23 History release 24 hr lisinopril 20 mg tablet 20 mg PO DAILY 06/25/20 09/05/23 History loratadine 10 mg tablet 10 mg PO DAILY 06/25/20 09/05/23 History metformin 1,000 mg tablet 1,000 mg BID 06/25/20 09/05/23 History omeprazole 40 mg capsule,delayed 40 mg PO QPM 06/25/20 09/05/23 History release simvastatin 20 mg tablet 20 mg PO DAILY 06/25/20 09/05/23 History tamsulosin 0.4 mg capsule 0.4 mg PO DAILY 06/25/20 09/05/23 History milk thistle 500 mg capsule 1,000 mg PO DAILY 12/16/20 09/08/21 History multivitamin 1 tab PO DAILY 12/16/20 09/08/21 History thiamine HCl (vitamin B1) 250 mg 250 mg PO DAILY 12/16/20 09/05/23 History tablet (Vitamin B-1) Allergies Allergy/AdvReac Type Severity Reaction Status Date / Time hydrocodone Allergy Mild Itch Verified 09/05/23 10:48 NSAIDS (Non-Steroidal Allergy Unknown Physician Verified 09/05/23 10:48 Anti-Inflamma said not to take codeine AdvReac Mild CONSTIPATION, Verified 09/05/23 10:48 BUT HAS NEVER TAKEN WITH STOOL SOFTENER Review of Systems Review of Systems ROS: Yes All systems reviewed with the patient and are negative except as otherwise documented Exam Vital Signs (past 8 hours): - 09/05/23 10:53 Temperature 97.2 F L Pulse Rate 66 Respiratory Rate 16 Blood Pressure 133/68 Pulse Oximetry 96 Oxygen Delivery Method Room Air Oxygen Delivery Method Room Air Const General: cooperative HENMT Head: normal to inspection Eyes General: appearance normal, both eyes and all related structures Neck Neck: normal visual inspection Chest Chest: normal inspection of the chest Resp Effort & Inspection: normal respiratory effort Cardio Rate: regular rate GI Inspection: normal to inspection Skin General: no rashes or lesions noted Neuro General: patient alert and patient awake Extrem General: normal to inspection and no pedal edema Psych Appearance: grossly normal Assessment & Plan Assessment & Plan narrative: 68-year-old male with a history of varices. Surveillance EGD is planned for today.
--- NOTE | 2023-09-05 11:44 | PM.PREOP ---
Pre-operative Note Interval Note History & Physical reviewed/Exam performed by Physician: Yes Changes to H&P: No ASA Class (for procedural sedation): III
--- NOTE | 2023-09-05 12:45 | P.OP.EGD_ITS ---
Operative Date/Time/Diagnoses Date of procedure: 09/05/23 Time of procedure: 12:45 Pre-op diagnosis: Cirrhosis and prior varices with banding. Post-op diagnosis: same Procedure & Clinicians Study performed: EGD with biopsy Same procedure as scheduled: Yes Indications: Cirrhosis and prior varices with banding. Surgeon: Alfred Gonsalves Procedure Notes SCOAP/Timeout: Done Procedure in detail: After the risks and benefits were explained, written and verbal informed consent was obtained. The patient was brought into the procedure room and placed into the left lateral decubitus position. Please see anesthesia notes for sedation details. The scope was introduced into the mouth through the bite block and advanced under direct visualization to the 2nd portion of the duodenum. The scope was slowly withdrawn carefully examining the mucosa for any defects or lesions. Retroflexed views were accomplished in the stomach. The stomach was decompressed, the scope was then removed from the patient who tolerated the proc edure well. Sedation minutes: 9 Complications: none Impression: 1. Duodenum: No pathology from the bulb through the 2nd portion. 2. Stomach: Patient had some scattered erosive features in the proximal antrum and up in the cardia region. I therefore took a biopsy from the antrum for exclusion of H pylori infection. I did not see any evidence of gastric varices. 3. Esophagus: The squamocolumnar junction correlated with the top of the gastric folds. GEJ was at about 37 cm from the incisors. There was a small sliding hiatal hernia. No acute erosive changes no strictures no mass lesions. Patient had varices that mostly flattened out with air insufflation. They were grade 2 in the 3:00 a.m. location in the distal esophagus without stigmata of recent bleeding and no high-risk features. Endoscopic diagnosis 1. Erosive gastropathy 2. Subtle sliding hiatal hernia 3. Grade 1-2 distal esophageal varices Post-procedure Plan for aftercare: 1. Continue anti-reflux therapy 2. Continue nadolol. 3. In light of prior history of esophageal variceal banding, surveillance EGD is suggested for 1 year. 4. If Helicobacter is found, standard triple therapy will be required. Disposition: PACU
== END 2023-09-05 13:21 | disposition home or self-care (01) ==
PROVIDERS: PCP Internal Medicine; Referring Provider Internal Medicine Gastroenterology; Visit Provider Internal Medicine Gastroenterology
PROC: 0DJ08ZZ Inspection of Upper Intestinal Tract, Via Natural or Artificial Opening Endoscopic (ICD-10-PCS; CPT 43235; principal; 2023-09-05 11:30)
DX: K74.60 Unspecified cirrhosis of liver (principal); I85.10 Secondary esophageal varices without bleeding; K31.89 Other diseases of stomach and duodenum; K44.9 Diaphragmatic hernia without obstruction or gangrene; K29.50 Unspecified chronic gastritis without bleeding; K31.9 Disease of stomach and duodenum, unspecified
CPT/HCPCS: 43239; 82962; J2704

== ENCOUNTER 2024-04-16 08:21 | Emergency (ER) | payer MEDICARE, OTHER, SELFPAY ==
[2020-12-26 08:04] VITALS: BMI 22.8
[2024-04-16 08:30] VITALS: BP 141/67; PULSE 67; RESP 12; TEMP 36.1; O2SAT 97; BMI 22.8
--- NOTE | 2024-04-16 08:33 | DI.RAD.S_ITS ---
PROCEDURE: XR RIBS RT MIN 3V W CXR 1V INDICATIONS: injury last week, pain TECHNIQUE: 3 views of the ribs were acquired, along with a single view chest. COMPARISON: None. FINDINGS: Surgical changes and devices: None. Bones and chest wall: No fractures or dislocations. No suspicious bony lesions. Overlying soft tissues appear unremarkable. Lungs and pleura: Diffuse interstitial opacities are present bilaterally, most confluent at the right lung base. No pleural effusion or pneumothorax. Mediastinum: Mediastinal contours appear normal. Heart size is normal. IMPRESSION: No displaced rib fracture or pneumothorax. Patchy airspace opacities at the right lung base. Differential considerations include atelectasis, aspiration or infection. Short interval follow-up to resolution is recommended. Dictated by: Yaneli Mercado M.D. on 04/16/2024 at 9:33 Approved by: Yaneli Mercado M.D. on 04/16/2024 at 9:36
--- NOTE | 2024-04-16 10:12 | ED_ITS ---
HPI - Back Pain/Injury General Chief Complaint: Back Pain/Injury Stated Complaint: right rib pain Time Seen by Provider: 04/16/24 10:07 Source: patient History of Present Illness HPI Narrative: Patient here for right rib pain. One week ago at home he was working on a repair of a shed. He stood up on a box, 2 ft off the ground. He pulled on a cart that he thought was secured but the wheel portion that he was hanging onto with the right hand as he pulled hit his right rib. He did not fall. Denies any other injuries. No prior history of broken ribs. Related Data Home Medications Medication Instructions Recorded Confirmed nadolol 20 mg tablet 20 mg PO QPM ##0 11/22/11 09/05/23 allopurinol 100 mg tablet 300 mg PO QDAY ##0 05/29/13 09/05/23 glipizide 2.5 mg tablet, extended 2.5 mg PO BID 06/25/20 09/05/23 release 24 hr lisinopril 20 mg tablet 20 mg PO DAILY 06/25/20 09/05/23 loratadine 10 mg tablet 10 mg PO DAILY 06/25/20 09/05/23 metformin 1,000 mg tablet 1,000 mg BID 06/25/20 09/05/23 omeprazole 40 mg capsule,delayed 40 mg PO QPM 06/25/20 09/05/23 release simvastatin 20 mg tablet 20 mg PO DAILY 06/25/20 09/05/23 tamsulosin 0.4 mg capsule 0.4 mg PO DAILY 06/25/20 09/05/23 milk thistle 500 mg capsule 1,000 mg PO DAILY 12/16/20 09/08/21 multivitamin 1 tab PO DAILY 12/16/20 09/08/21 thiamine HCl (vitamin B1) 250 mg 250 mg PO DAILY 12/16/20 09/05/23 tablet (Vitamin B-1) Allergies Allergy/AdvReac Type Severity Reaction Status Date / Time hydrocodone Allergy Mild Itch Verified 04/16/24 11:08 NSAIDS (Non-Steroidal Allergy Unknown Physician Verified 04/16/24 11:08 Anti-Inflamma said not to take codeine AdvReac Mild CONSTIPATION, Verified 04/16/24 11:08 BUT HAS NEVER TAKEN WITH STOOL SOFTENER Review of Systems Review of Systems Narrative: GENERAL: negative chills, fatigue, malaise, fever, sweats. HEENT: negative sinus pain, ear pain, sore throat RESPIRATORY: negative dyspnea, cough CARDIOVASCULAR: negative chest pain, palpitations GASTROINTESTINAL: negative nausea, vomiting, abdominal pain : negative dysuria, frequency, hematuria MUSCULOSKELETAL: Positive muscle or bony pain SKIN: negative rash, skin lesions NEUROLOGIC: negative weakness, numbness ROS Unobtainable: All systems reviewed & are unremarkable except as noted in HPI and below Patient History Medical History Heterozygous factor V Leiden mutation Unspecified essential hypertension DVT (deep venous thrombosis) Ringing in ears Gout Gastritis Diverticulosis Tubular adenoma Anemia Esophageal 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 Hiatal hernia Portal hypertensive gastropathy Chronic alcohol abuse Hepatic cirrhosis Diabetes Foot pain, left Hallux valgus with bunions of left foot Hammertoe of second toe of left foot Surgical History History of cataract extraction with lens replacement History of colonoscopy History of total hip arthroplasty History of esophagogastroduodenoscopy (EGD) (~08/27/20) Social History household members: spouse and family Smoking Status: Former smoker alcohol intake: former Smoking Status: Former smoker alcohol intake frequency: a few times a week Substance Use Type: marijuana Exam Narrative Exam Narrative: GENERAL: in no distress, not toxic not dyspneic HEAD: Normocephalic. EYES: Pupils equal round ENT: Mucous membranes moist. NECK: Trachea midline. CARDIOVASCULAR: Regular rate and rhythm RESPIRATORY: Clear to auscultation. Breath sounds equal bilaterally. No wheezes, rales, or rhonchi. Examination of the lungs/chest Examination with a shirt off. There is mild right inframammary rib tenderness. No crepitus no flail. No bruising. Full and equal lung sounds. GASTROINTESTINAL: Abdomen soft, non-tender Examination abdomen, soft nontender no right upper quadrant tenderness. No bruising. Shirt removed. No peritoneal signs bowel sounds are present. No CVA tenderness EXTREMITIES: No gross deformities. BACK: No flank tenderness. NEURO: AOx4. SKIN: Warm and dry PSYCH: Not anxious, is cooperative Initial Vital Signs Initial Vital Signs: Vital Signs Temperature 97 F L 04/16/24 08:30 Pulse Rate 67 04/16/24 08:30 Respiratory Rate 12 04/16/24 08:30 Blood Pressure 141/67 H 04/16/24 08:30 Pulse Oximetry 97 04/16/24 08:30 Oxygen Delivery Method Room Air 04/16/24 08:30 Course Orders Ordered: ED Orders 04/16/24 08:33 XR ribs RT min 3V w CXR1V Stat 04/16/24 10:11 CT chest wo con Stat 04/16/24 11:09 Comprehensive Metabolic Panel Stat Lipase Stat Magnesium Stat PTT Partial Thromboplastin Arnie Stat Prothrombin Time INR Stat Troponin & CK Cardiac Panel Stat Vital Signs Vital signs: Vital Signs - 8 hr 04/16/24 08:30 Temperature 97 F L Pulse Rate 67 Respiratory Rate 12 Blood Pressure 141/67 H Pulse Oximetry 97 Oxygen Delivery Method Room Air MDM - Back Pain/Injury Imaging Data Chest x-ray: Radiologist's Impression: [address] [address] XRay Report Signed Patient: Bola Mercado MR#: [id number] : 1955 Acct:[id number] Age/Sex: 68 / M Date of Service: 04/16/24 Loc: ED Accession Number: [id number] Procedure: XR ribs RT min 3V w CXR1V Ordering Provider: Nickolas Arriaga MD PROCEDURE: XR RIBS RT MIN 3V W CXR 1V INDICATIONS: injury last week, pain TECHNIQUE: 3 views of the ribs were acquired, along with a single view chest. COMPARISON: None. FINDINGS: Surgical changes and devices: None. Bones and chest wall: No fractures or dislocations. No suspicious bony lesions. Overlying soft tissues appear unremarkable. Lungs and pleura: Diffuse interstitial opacities are present bilaterally, most confluent at the right lung base. No pleural effusion or pneumothorax. Mediastinum: Mediastinal contours appear normal. Heart size is normal. IMPRESSION: No displaced rib fracture or pneumothorax. Patchy airspace opacities at the right lung base. Differential considerations include atelectasis, aspiration or infection. Short interval follow-up to resolution is recommended. Dictated by: Yaneli Mercado M.D. on 04/16/2024 at 9:33 Approved by: Yaneli Mercado M.D. on 04/16/2024 at 9:36 CT scan - chest: Radiologist's Impression: [address] [address] [address] Scan Report Signed Patient: Bola Mercado MR#: [id number] : 1955 Acct:[id number] Age/Sex: 68 / M Date of Service: 04/16/24 Loc: ED Accession Number: [id number] Procedure: CT chest wo con Ordering Provider: Nickolas Arriaga MD PROCEDURE: CT CHEST WO CON INDICATIONS: Trauma/right rib pain TECHNIQUE: Noncontrast 5 mm thick sections acquired from the pulmonary apices to the posterior costophrenic angles. 1 mm lung window, 5 mm thick coronal and sagittal and 7 mm axial MIP reformats were then acquired. For radiation dose reduction, the following was used: automated exposure control, adjustment of mA and/or kV according to patient size. COMPARISON: None. FINDINGS: Image quality: Diagnostic. Lower Neck: No enlarged lymph nodes. Thyroid: No thyroid nodules which require sonographic follow up, per consensus guidelines. Axillae: No enlarged lymph nodes. Chest Wall: Unremarkable. Bones: Unremarkable. Lungs and Pleura: Paraseptal emphysema is present at the right apex. There is peripheral interlobular septal thickening predominantly within the mid and lower lungs. Findings are slightly greater on the right than on the left. Heart: Heart size is normal. No pericardial effusion. There are 3 vessel coronary artery calcifications noted. Thoracic Vessels: The aorta and pulmonary arteries demonstrate normal size. Scattered atheromatous calcifications are present within the aortic arch. Mediastinum and Lexie: No enlarged lymph nodes. Esophagus: No wall thickening. No hiatal hernia. Upper Abdomen: Trace sludge or small radiodense calculi are layered in the gallbladder fundus. No gallbladder wall thickening or pericholecystic fluid. Visualized upper abdomen solid organs and bowel loops appear normal. IMPRESSION: 1. No displaced rib fractures visualized. 2. Peripheral interlobular septal thickening suggesting early pulmonary fibrosis. 3. Cholelithiasis. No findings to suggest choledocholithiasis or acute cholecystitis. 4. Aortic atherosclerosis. Dictated by: Yaneli Mercado M.D. on 04/16/2024 at 10:48 Approved by: Yaneli Mercado M.D. on 04/16/2024 at 10:54 [facility] Narrative Medical decision making narrative: Patient here for right rib pain. One week ago at home he was working on a repair of a shed. He stood up on a box, 2 ft off the ground. He pulled on a cart that he thought was secured but the wheel portion that he was hanging onto with the right hand as he pulled hit his right rib. He did not fall. Denies any other injuries. No prior history of broken ribs. After history and exam x-ray of the ribs, if negative then CT chest. Exam is reassuring. No blood work indicated this time. Abdominal exam is reassuring and is nontender. Patient is not on a blood thinner MDM Medical records reviewed: No recent visit for this complaint Differential considered: Includes but not limited to rib fracture rib contusion pneumothorax hemothorax Imaging studies independently reviewed: Chest x-ray no acute finding, CT chest no acute finding Treatments: None indicated, pain is controlled. Re-evaluations: 11:30 a.m.. Reviewed results with patient. Pain is controlled. No dyspnea. Return precautions reviewed with him. He desires discharge home. Discussion: Appropriate for discharge home exam is reassuring. No blood work indicated. Abdominal exam is reassuring. No incentive spirometry indicated at this time. Injury occurred over a week ago. Patient has no respiratory complaints. Return precautions reviewed, he desires discharge home Diagnosis: Right rib contusion Discharge Plan Departure Patient Disposition: Home Clinical Impression: Contusion of rib on right side Qualifiers: Encounter type: initial encounter Qualified Code(s): S20.211A - Contusion of right front wall of thorax, initial encounter Instructions: DI for Rib Contusion Activity Restrictions/Additional Instructions: Your exam and x-ray and CT scan imaging is reassuring today. No broken bones were seen. Please see family doctor in a week for re-evaluation. Return if worse if any questions or concerns. You may continue your home medications. Prescriptions: No Action nadolol 20 MG tablet 20 mg PO QPM Qty: 0 allopurinol 100 MG tablet 300 mg PO QDAY Qty: 0 multivitamin Tablet 1 tab PO DAILY milk thistle 500 mg Capsule 1,000 mg PO DAILY thiamine HCl (vitamin B1) [Vitamin B-1] 250 mg Tablet 250 mg PO DAILY lisinopril 20 mg Tablet 20 mg PO DAILY metformin 1,000 mg tablet 1,000 mg BID omeprazole 40 mg capsule,delayed release(DR/EC) 40 mg PO QPM tamsulosin 0.4 mg capsule 0.4 mg PO DAILY glipizide 2.5 mg tablet extended release 24hr 2.5 mg PO BID simvastatin 20 mg tablet 20 mg PO DAILY loratadine 10 mg Tablet 10 mg PO DAILY Patient Comments: Ptient believes he last took in March 2021 Referrals: Arvind Eli MD [Primary Care Provider] - Stand Alone Forms: Patient Portal/API
--- NOTE | 2024-04-16 11:43 | PC.NURSE ---
No obvious bruising. Pain with palpation and deep breath. Lungs clear
[2024-04-16 11:44] VITALS: BP 142/70; PULSE 76; RESP 16; O2SAT 98
== END 2024-04-16 11:45 | disposition home or self-care (01) ==
PROVIDERS: Emergency Provider Emergency Medicine; PCP Internal Medicine
DX: S20.211A Contusion of right front wall of thorax, initial encounter (principal); X58.XXXA Exposure to other specified factors, initial encounter
CPT/HCPCS: 71101; 71250; 99283; 99284

== ENCOUNTER 2024-06-04 10:15 | Emergency (ER) | payer MEDICARE, OTHER, SELFPAY ==
[2020-12-26 08:04] VITALS: BMI 22.8
[2024-06-04 10:19] VITALS: BP 137/77; PULSE 87; RESP 18; TEMP 36.7; O2SAT 95; BMI 23.6
--- NOTE | 2024-06-04 10:22 | DI.RAD.S_ITS ---
PROCEDURE: XR FINGER LT MIN 2V INDICATIONS: pain TECHNIQUE: AP hand, 2 views of the 4th finger(s) acquired. COMPARISON: None. FINDINGS: Bones: No fractures or dislocations. No suspicious bony lesions. There is a pattern of [id number] degenerative osteoarthritis over the hand. Soft tissues: No suspicious soft tissue calcifications. IMPRESSION: No acute bony abnormality. [id number] degenerative osteoarthritis over the hand. This is most severe at the base of the 1st metacarpal. Dictated by: Truman Hong M.D. on 06/04/2024 at 11:12 Approved by: Truman Hong M.D. on 06/04/2024 at 11:12
--- NOTE | 2024-06-04 11:25 | PC.NURSE ---
Bora came in 20 minutes after an injury to his Left ring finger that occured when he was working with his grandson splitting wood. He reports being struck with some wood and suspects a broken finger. This finger appears swollen and bruised; not wearing any rings.
--- NOTE | 2024-06-04 12:30 | ED.UPPEXIN ---
HPI - Extremity Injury (Upper) <Ceferino Keller PA-C - Last Filed: 06/04/24 12:42> General Chief Complaint: Extremity Injury, Upper Stated Complaint: Thinks he Broke his Left Ring finger Time Seen by Provider: 06/04/24 11:26 Source: patient Mode of arrival: Ambulatory History of Present Illness HPI narrative: 68-year-old male presents to the ED status post a finger injury sustained prior to arrival. Patient accidentally sustained a crush injury when he was splitting wood earlier today. Patient complains of pain to the left ring finger. Denies numbness, tingling, weakness. Related Data Home Medications Medication Instructions Recorded Confirmed nadolol 20 mg tablet 20 mg PO QPM ##0 11/22/11 09/05/23 allopurinol 100 mg tablet 300 mg PO QDAY ##0 05/29/13 09/05/23 glipizide 2.5 mg tablet, extended 2.5 mg PO BID 06/25/20 09/05/23 release 24 hr lisinopril 20 mg tablet 20 mg PO DAILY 06/25/20 09/05/23 loratadine 10 mg tablet 10 mg PO DAILY 06/25/20 09/05/23 metformin 1,000 mg tablet 1,000 mg BID 06/25/20 09/05/23 omeprazole 40 mg capsule,delayed 40 mg PO QPM 06/25/20 09/05/23 release simvastatin 20 mg tablet 20 mg PO DAILY 06/25/20 09/05/23 tamsulosin 0.4 mg capsule 0.4 mg PO DAILY 06/25/20 09/05/23 milk thistle 500 mg capsule 1,000 mg PO DAILY 12/16/20 09/08/21 multivitamin 1 tab PO DAILY 12/16/20 09/08/21 thiamine HCl (vitamin B1) 250 mg 250 mg PO DAILY 12/16/20 09/05/23 tablet (Vitamin B-1) Allergies Allergy/AdvReac Type Severity Reaction Status Date / Time hydrocodone Allergy Mild Itch Verified 06/04/24 10:21 NSAIDS (Non-Steroidal Allergy Unknown Physician Verified 06/04/24 10:21 Anti-Inflamma said not to take codeine AdvReac Mild CONSTIPATION, Verified 06/04/24 10:21 BUT HAS NEVER TAKEN WITH STOOL SOFTENER Review of Systems <Ceferino Keller PA-C - Last Filed: 06/04/24 12:42> Constitutional Constitutional: Denies chills, Denies fatigue, Denies fever(s), Denies frequent falls, Denies lethargy and Denies weakness Eyes Eyes: Denies change in vision, Denies eye discharge, Denies irritation and Denies loss of vision ENT Ears, Nose, Mouth, and Throat: Denies change in voice, Denies dizziness, Denies neck pain, Denies sore throat and Denies throat swelling Cardiovascular Cardiovascular: Denies chest pain, Denies irregular heart rhythm, Denies lightheadedness, Denies palpitations, Denies dyspnea, Denies dyspnea on exertion and Denies orthopnea Respiratory Respiratory: Denies cough, Denies dyspnea, Denies dyspnea on exertion and Denies wheezing Gastrointestinal Gastrointestinal: Denies abdominal pain, Denies change in bowel habits, Denies diarrhea, Denies nausea and Denies vomiting Musculoskeletal Musculoskeletal: Denies neck pain and Denies numbness Comments: Left ring finger pain Integumentary/Breasts Skin/Breast: Denies pruritus, Denies erythema, Denies rash and Denies wounds Neurologic Neurologic: Denies behavioral changes, Denies confusion, Denies dizziness, Denies frequent falls, Denies loss of vision, Denies numbness and Denies weakness Psychiatric Psychiatric: Denies anxiety, Denies behavioral changes, Denies confusion, Denies depression, Denies homicidal ideation and Denies suicidal ideation Endocrine Endocrine: Denies fatigue, Denies flushing and Denies palpitations Hematologic/Lymphatic Hematologic/Lymphatic: Denies easy bruising Allergic/Immunologic Allergic/Immunologic: Denies urticaria, Denies throat swelling and Denies wheezing Patient History <Ceferino Keller PA-C - Last Filed: 06/04/24 12:42> Medical History Heterozygous factor V Leiden mutation Unspecified essential hypertension DVT (deep venous thrombosis) Ringing in ears Gout Gastritis Diverticulosis Tubular adenoma Anemia Esophageal 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 Hiatal hernia Portal hypertensive gastropathy Chronic alcohol abuse Hepatic cirrhosis Diabetes Foot pain, left Hallux valgus with bunions of left foot Hammertoe of second toe of left foot Surgical History History of cataract extraction with lens replacement History of colonoscopy History of total hip arthroplasty History of esophagogastroduodenoscopy (EGD) (~08/27/20) Social History household members: spouse and family Smoking Status: Former smoker alcohol intake: former Smoking Status: Former smoker alcohol intake frequency: a few times a week Substance Use Type: marijuana Exam <GUILLERMO Croft Last Filed: 06/04/24 12:42> Narrative Exam Narrative: Const General:?cooperative, healthy appearing and comfortable HENIA Head:?normal to inspection Ears:?hearing grossly normal bilaterally Nose:?external nose normal Face and sinus:?normal facial exam and sinuses nontender Mouth:?oral mucosae normal Throat:?posterior oropharynx normal Eyes General:?appearance normal, both eyes and all related structures Neck Neck:?normal visual inspection and no lymphadenopathy noted Resp Effort & Inspection:?normal respiratory effort Auscultation:?clear to auscultation bilaterally Cardio Rate:?regular rate Rhythm:?regular rhythm Musculoskeletal Left ring finger with mild swelling, tenderness to palpation. There is some onset of bruising. There is full range of motion. Strength and sensation is intact. Patient is neurovascularly intact. Neuro General:?patient alert, patient awake and patient oriented x3 Initial Vital Signs Initial Vital Signs: Vital Signs Temperature 98.1 F 06/04/24 10:19 Pulse Rate 87 06/04/24 10:19 Respiratory Rate 18 06/04/24 10:19 Blood Pressure 137/77 06/04/24 10:19 Pulse Oximetry 95 06/04/24 10:19 Oxygen Delivery Method Room Air 06/04/24 10:19 <Colette Pace DO - Last Filed: 06/05/24 07:44> Initial Vital Signs Initial Vital Signs: Vital Signs Temperature 98.1 F 06/04/24 10:19 Pulse Rate 87 06/04/24 10:19 Respiratory Rate 18 06/04/24 10:19 Blood Pressure 137/77 06/04/24 10:19 Pulse Oximetry 95 06/04/24 10:19 Oxygen Delivery Method Room Air 06/04/24 10:19 Course <GUILLERMO Croft Last Filed: 06/04/24 12:42> Orders Ordered: ED Orders 06/04/24 10:22 XR finger LT min 2V Stat Vital Signs Vital signs: Vital Signs - 8 hr 06/04/24 10:19 Temperature 98.1 F Pulse Rate 87 Respiratory Rate 18 Blood Pressure 137/77 Pulse Oximetry 95 Oxygen Delivery Method Room Air <Colette Pace DO - Last Filed: 06/05/24 07:44> Orders Ordered: ED Orders 06/04/24 10:22 XR finger LT min 2V Stat Vital Signs Vital signs: Vital Signs - 8 hr 06/04/24 10:19 Temperature 98.1 F Pulse Rate 87 Respiratory Rate 18 Blood Pressure 137/77 Pulse Oximetry 95 Oxygen Delivery Method Room Air MDM - Extremity Injury (Upper) <Ceferino Keller PA-C - Last Filed: 06/04/24 12:42> MDM Narrative Medical decision making narrative: 68-year-old male presents to the ED status post a finger injury sustained prior to arrival. Concern for fracture/dislocation versus musculoskeletal sprain/strain versus other. X-ray was obtained which shows no fractures or dislocations. X-ray does show some osteoarthritis. Patient has full range of motion of the finger. Minimal swelling. Strength and sensation is intact. Neurovascularly intact. Patient's symptoms consistent with a musculoskeletal sprain/strain. Patient was fitted with a finger splint for comfort. Patient prefers not to take any Tylenol or ibuprofen given that he has cirrhosis. Recommend ice and heat as needed. Recommend PCP follow-up as soon as possible. ED return precautions discussed with patient. Patient verbalized understanding. Medical records reviewed: Yes Discharge Plan Departure Patient Disposition: Home Clinical Impression: Sprain of finger Qualifiers: Encounter type: initial encounter Finger: ring finger Sprain of finger site: unspecified site Laterality: left Qualified Code(s): S63.615A - Unspecified sprain of left ring finger, initial encounter Instructions: DI for Finger Sprain Activity Restrictions/Additional Instructions: You were evaluated in the ED today for a finger injury. Your x-ray did not show any fractures or dislocations. It appears you have a sprain of the finger from the injury. You have been fitted with a finger splint for support. You may wear the splint for the next few days for comfort. However, it is a good idea to take off the splint several times a day and move your fingers to maintain good mobility. You may apply ice for the next 24 hours, followed by heat packs for comfort. Please follow-up with your PCP as soon as possible. Return to the ED if you have worsening symptoms, numbness, tingling, weakness. Prescriptions: No Action nadolol 20 MG tablet 20 mg PO QPM Qty: 0 allopurinol 100 MG tablet 300 mg PO QDAY Qty: 0 multivitamin Tablet 1 tab PO DAILY milk thistle 500 mg Capsule 1,000 mg PO DAILY thiamine HCl (vitamin B1) [Vitamin B-1] 250 mg Tablet 250 mg PO DAILY lisinopril 20 mg Tablet 20 mg PO DAILY metformin 1,000 mg tablet 1,000 mg BID omeprazole 40 mg capsule,delayed release(DR/EC) 40 mg PO QPM tamsulosin 0.4 mg capsule 0.4 mg PO DAILY glipizide 2.5 mg tablet extended release 24hr 2.5 mg PO BID simvastatin 20 mg tablet 20 mg PO DAILY loratadine 10 mg Tablet 10 mg PO DAILY Patient Comments: Ptient believes he last took in March 2021 Referrals: Arvind Eli MD [Primary Care Provider] - Stand Alone Forms: Patient Portal/API ED Sign-out <Colette Pace DO - Last Filed: 06/05/24 07:44> Cosign ED Attending Flex Attestation: I was immediately available in the department for consultation.
== END 2024-06-04 12:35 | disposition home or self-care (01) ==
PROVIDERS: Emergency Provider Student in an Organized Health Care Education/Training Program; PCP Internal Medicine
DX: S63.615A Unspecified sprain of left ring finger, initial encounter (principal); X58.XXXA Exposure to other specified factors, initial encounter
CPT/HCPCS: 73140; 99281; 99283

== ENCOUNTER 2024-10-08 06:50 | Day surgery (SDC) | payer MEDICARE, OTHER, SELFPAY ==
[2020-12-26 08:04] VITALS: BMI 22.8
[2024-10-08 07:31] VITALS: BP 118/69; PULSE 63; RESP 16; TEMP 36.5; O2SAT 98
--- NOTE | 2024-10-08 07:59 | P.HP_ITS ---
History of Present Illness History of Present Illness Date Patient Seen: 10/08/24 Time Patient Seen: 07:59 Chief complaint: SDC Narrative: I reviewed the recent office note by Dr. Varner. No changes. Patient has a history of alcoholic cirrhosis and reports for variceal surveillance. [facility] Medical History Heterozygous factor V Leiden mutation Unspecified essential hypertension DVT (deep venous thrombosis) Ringing in ears Gout Gastritis Diverticulosis Tubular adenoma Anemia Esophageal 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 Hiatal hernia Portal hypertensive gastropathy Chronic alcohol abuse Hepatic cirrhosis Diabetes Foot pain, left Hallux valgus with bunions of left foot Hammertoe of second toe of left foot Surgical History History of cataract extraction with lens replacement History of colonoscopy History of total hip arthroplasty History of esophagogastroduodenoscopy (EGD) (~08/27/20) Social History household members: spouse and family Smoking Status: Former smoker alcohol intake: former Meds Home Medications and Allergies Home Medications Medication Instructions Recorded Confirmed Type nadolol 20 mg tablet 20 mg PO QPM ##0 11/22/11 10/08/24 History allopurinol 100 mg tablet 300 mg PO QDAY ##0 05/29/13 10/08/24 History glipizide 2.5 mg tablet, extended 2.5 mg PO DAILY 06/25/20 10/08/24 History release 24 hr lisinopril 20 mg tablet 20 mg PO DAILY 06/25/20 10/08/24 History loratadine 10 mg tablet 10 mg PO DAILY 06/25/20 10/08/24 History metformin 1,000 mg tablet 1,000 mg BID 06/25/20 10/08/24 History omeprazole 40 mg capsule,delayed 40 mg PO QPM 06/25/20 09/05/23 History release simvastatin 20 mg tablet 20 mg PO DAILY 06/25/20 09/05/23 History tamsulosin 0.4 mg capsule 0.4 mg PO DAILY 06/25/20 09/05/23 History milk thistle 500 mg capsule 1,000 mg PO DAILY 12/16/20 09/08/21 History multivitamin 1 tab PO DAILY 12/16/20 09/08/21 History thiamine HCl (vitamin B1) 250 mg 250 mg PO DAILY 12/16/20 09/05/23 History tablet (Vitamin B-1) Allergies Allergy/AdvReac Type Severity Reaction Status Date / Time hydrocodone Allergy Mild Itch Verified 10/08/24 07:05 NSAIDS (Non-Steroidal Allergy Unknown Physician Verified 10/08/24 07:05 Anti-Inflamma said not to take codeine AdvReac Mild CONSTIPATION, Verified 10/08/24 07:05 BUT HAS NEVER TAKEN WITH STOOL SOFTENER Review of Systems Review of Systems ROS: Yes All systems reviewed with the patient and are negative except as otherwise documented Exam Vital Signs (past 8 hours): - 10/08/24 07:31 Temperature 97.7 F Pulse Rate 63 Respiratory Rate 16 Blood Pressure 118/69 Pulse Oximetry 98 Oxygen Delivery Method Room Air Oxygen Delivery Method Room Air Const General: cooperative HENMT Head: normal to inspection Eyes General: appearance normal, both eyes and all related structures Neck Neck: normal visual inspection Chest Chest: normal inspection of the chest Resp Effort & Inspection: normal respiratory effort Cardio Rate: regular rate GI Inspection: normal to inspection Skin General: no rashes or lesions noted Neuro General: patient alert and patient awake Extrem General: normal to inspection and no pedal edema Psych Appearance: grossly normal Assessment & Plan Assessment & Plan narrative: 69-year-old male with alcoholic cirrhosis. EGD for variceal surveillance is pursued today. Time-Based Coding :: [TOTAL MINUTES] spent with patient and on the chart (including review of chart, obtaining history, exam, reviewing outside data, placing orders, documenting exam and treatment plan, and counseling patient) on [DATE].
--- NOTE | 2024-10-08 08:00 | PM.PREOP ---
Pre-operative Note Interval Note History & Physical reviewed/Exam performed by Physician: Yes Changes to H&P: No ASA Class (for procedural sedation): III
--- NOTE | 2024-10-08 08:21 | PM.OP.EGD ---
Operative Date/Time/Diagnoses Time of procedure: 08:22 Pre-op diagnosis: Cirrhosis with varices Post-op diagnosis: same Procedure & Clinicians Study performed: EGD with variceal banding Same procedure as scheduled: Yes Indications: Cirrhosis with varices Surgeon: Alfred Gonsalves Procedure Notes SCOAP/Timeout: Done Procedure in detail: After the risks and benefits were explained, written and verbal informed consent was obtained. The patient was brought into the procedure room and placed into the left lateral decubitus position. Conscious sedation medication was applied as per nursing documentation. The scope was introduced into the mouth through the bite block and advanced under direct visualization to the 2nd portion of the duodenum. The scope was slowly withdrawn carefully examining the mucosa for any defects or lesions. Retroflexed views were accomplished in the stomach. The stomach was decompressed, the scope was then removed from the patient who tolerated the procedure well. Sedation minutes: 14 Specimen(s): none sent Complications: none Impression: 1. Duodenal: This was normal 2. Stomach: Patient had a diffuse portal gastropathy. No ulcers no mass lesions no outlet obstruction and no obvious varices including retroflexed views 3. Esophagus: The patient had mostly grade 1 varices except for in the 3:00 a.m. column which would not fully flatten out and appeared to be sufficiently engorge to warrant further banding. This column did not demonstrate any red wilfrido signs or stigmata of recent bleeding. The cook 7 banding device was connected up to the scope and a single band was delivered to the 3:00 a.m. column within the distal 5 cm of the esophagus. The GE junction was at approximately 35 cm from the incisors. Endoscopic diagnosis 1. Grade 1-2 esophageal varices status post banding x1 2. Portal gastropathy Post-procedure Plan for aftercare: 1. Full liquid diet today. 2. Smoothie soft diet for 72 hours. 3. Continue nadolol 4. Repeat EGD for surveillance in approximately 3 months. Disposition: PACU
[2024-10-08 08:25] VITALS: BP 76/45; PULSE 68; RESP 16; TEMP 36.4; O2SAT 93
[2024-10-08 08:28] VITALS: BP 75/50; PULSE 64; RESP 11; O2SAT 94
[2024-10-08] MEDS: LACTATED RINGERS 1,000 ML 42 ML IV (08:34)
[2024-10-08 08:40] VITALS: BP 96/55; PULSE 64; RESP 17; O2SAT 97
[2024-10-08 08:49] VITALS: BP 105/64; PULSE 66; RESP 14; O2SAT 96
== END 2024-10-08 09:06 | disposition home or self-care (01) ==
PROVIDERS: PCP Internal Medicine; Referring Provider Internal Medicine Gastroenterology; Visit Provider Internal Medicine Gastroenterology
PROC: 0DJ08ZZ Inspection of Upper Intestinal Tract, Via Natural or Artificial Opening Endoscopic (ICD-10-PCS; CPT 43235; principal; 2024-10-08 08:00)
DX: I85.00 Esophageal varices without bleeding (principal); K70.30 Alcoholic cirrhosis of liver without ascites; K76.6 Portal hypertension; K31.89 Other diseases of stomach and duodenum
CPT/HCPCS: 43244; J2704